=== PATIENT | female | born 1960 | race Caucasian/White ===

== ENCOUNTER → 2016-11-17 | Outpatient (REF) | payer MEDICAID ==
[2016-11-17 11:37] LABS: MEAN CORPUSCULAR HEMOGLOBIN 30.5 pg (27.0-33.0); MEAN CORPUSCULAR HGB CONC 33.2 g/dl (32.0-36.5); MEAN CORPUSCULAR VOLUME 91.6 fl (80.0-96.0); RED CELL DISTRIBUTION WIDTH 14.4 % (11.5-14.5); WHITE BLOOD COUNT 9.5 K/mm3 (4.0-10.0)
[2016-11-17 11:48] LABS: ALBUMIN 3.7 GM/DL (3.2-5.2); ALBUMIN/GLOBULIN RATIO 1.19 (1.00-1.93); BILIRUBIN,TOTAL 0.3 MG/DL (0.2-1.0); CALCIUM LEVEL 9.4 MG/DL (8.5-10.1); CREATININE FOR GFR 1.21 MG/DL (0.55-1.02); GLOMERULAR FILTRATION RATE 49.2 (>51); TOTAL PROTEIN 6.8 GM/DL (6.4-8.2)
== END ==
LOC: M SFHCPLAZ 08:00
PROVIDERS: ATTEND Nurse Practitioner Adult Health
DX: I10 Essential (primary) hypertension (principal); R53.83 Other fatigue; E55.9 Vitamin D deficiency, unspecified

== ENCOUNTER → 2017-01-29 | Outpatient (CLI) | payer OTHER ==
--- NOTE | 2017-01-29 12:35 | REP ---
Clinical: Lower back pain . Technique: AP, lateral, bilateral oblique, and coned-down views. Findings: Alignment and lordosis is maintained. The vertebral bodies including transverse process and spinous processes are intact and normal for age. There is no evidence for acute fracture / compression injury or subluxation. No evidence for spondylolysis or spondylolisthesis. Right-sided bridging osteophytes at the L3-4 level. Impression: Age-related degenerative changes. Signed by Devon Mayo MD 01/29/2017 12:27 P
== END ==
LOC: M SMT 11:51
PROVIDERS: ATTEND Nurse Practitioner Adult Health
DX: M54.5 Low back pain (principal); M51.36 Other intervertebral disc degeneration, lumbar region

== ENCOUNTER → 2017-05-13 | Outpatient (REF) | payer OTHER ==
[2017-05-13 11:28] LABS: MEAN CORPUSCULAR HEMOGLOBIN 30.4 pg (27.0-33.0); MEAN CORPUSCULAR HGB CONC 32.5 g/dl (32.0-36.5); MEAN CORPUSCULAR VOLUME 93.6 fl (80.0-96.0); RED CELL DISTRIBUTION WIDTH 13.3 % (11.5-14.5); WHITE BLOOD COUNT 8.7 K/mm3 (4.0-10.0)
[2017-05-13 12:14] LABS: ALBUMIN 3.7 GM/DL (3.2-5.2); ALBUMIN/GLOBULIN RATIO 1.06 (1.00-1.93); ALKALINE PHOSPHATASE 136 U/L (45-117); ALT/SGPT 21 U/L (12-78); ANION GAP 7 MEQ/L (8-16); AST/SGOT 17 U/L (15-37); BILIRUBIN,TOTAL 0.3 MG/DL (0.2-1.0); BLOOD UREA NITROGEN 10 MG/DL (7-18); CALCIUM LEVEL 9.3 MG/DL (8.5-10.1); CARBON DIOXIDE LEVEL 27 MEQ/L (21-32); CHLORIDE LEVEL 104 MEQ/L (98-107); CHOLESTEROL LEVEL 291 MG/DL (<200); CREATININE FOR GFR 1.25 MG/DL (0.55-1.02); GLOMERULAR FILTRATION RATE 47.2 (>51); GLUCOSE, FASTING 84 MG/DL (70-105); POTASSIUM SERUM 4.2 MEQ/L (3.5-5.1); SODIUM LEVEL 138 MEQ/L (136-145); TOTAL PROTEIN 7.2 GM/DL (6.4-8.2); TRIGLYCERIDES LEVEL 206 MG/DL (<150)
== END ==
LOC: M SFHCPLAZ 08:24
PROVIDERS: ATTEND Nurse Practitioner Adult Health
DX: Z00.00 Encounter for general adult medical examination without abnormal findings (principal); Z82.61 Family history of arthritis; R53.83 Other fatigue; E55.9 Vitamin D deficiency, unspecified

== ENCOUNTER → 2017-09-22 | Outpatient (CLI) | payer OTHER ==
--- NOTE | 2017-09-22 13:33 | REP ---
UNILATERAL MAMMOGRAM LEFT BREAST: Unilateral mammogram left breast is performed in this patient status post right breast cancer and mastectomy. There is also family history of breast cancer in sister and maternal aunt. Left breast shows mild fibroglandular tissue. No mass or clustered microcalcifications are seen. IMPRESSION: BI-RADS/ACR category 1 mammogram. Negative. Routine annual screening mammography (for women over age 40). ACR 1, negative mammogram left breast in this patient status post right mastectomy. Suggest followup mammogram in 1 year. This mammogram was interpreted with the aid of an FDA-approved computer-aided detection system. The patient states that she/he has not had a clinical breast exam in over a year. The patient letter being requested is M1.
== END ==
LOC: M WHC 10:45
PROVIDERS: ATTEND Nurse Practitioner Adult Health
DX: Z12.31 Encounter for screening mammogram for malignant neoplasm of breast (principal); Z85.3 Personal history of malignant neoplasm of breast; Z90.11 Acquired absence of right breast and nipple

== ENCOUNTER → 2017-10-29 | Outpatient (REF) | payer OTHER | LOC: M SFHCWAGY 15:47 | DX: Z12.4 Encounter for screening for malignant neoplasm of cervix (principal) ==

== ENCOUNTER → 2018-11-04 | Outpatient (CLI) | payer MEDICARE, MEDICAID ==
--- NOTE | 2018-11-04 14:59 | REPMRS ---
Patient History The patient states she had a clinical breast exam in 11/20 Patient is postmenopausal, had previous chemotherapy at age 43, and has history of cancer in the right breast at age 42. Family history of breast cancer under age 50 in sister, breast cancer at age 50 or over in maternal aunt, prostate cancer at age 50 or over in father. Reconstruction of the right breast, 2004. Mastectomy of the right breast, 2003. Took tamoxifen for 3 years. Digital Woman Screen Mammo: November 04, 2018 - Exam #: [id number] Bilateral CC and MLO view(s) were taken. Technologist: Anuja Naranjo, Technologist Prior study comparison: September 22, 2017, digital woman screen mammo performed at [facility]. July 22, 2016, digital woman screen mammo performed at [facility]. September 12, 2014, digital woman screen mammo performed at [facility]. FINDINGS: There are scattered fibroglandular densities. There has been no change in the appearance of the left breast parenchyma in the interval since the prior examination. No mass, architectural distortion, or microcalcific cluster has developed. No suspicious finding. 3-D tomosynthesis shows no additional findings. Assessment: BI-RADS/ACR category 2 mammogram. Benign finding(s). Recommendation Routine screening mammogram of the left breast in 1 year. This mammogram was interpreted with the aid of an FDA-approved computer-aided dectection system. Electronically Signed By: Fei Chu MD 11/04/18 1187
== END ==
LOC: M WHC 13:58
PROVIDERS: ATTEND Nurse Practitioner Women's Health
DX: Z01.419 Encounter for gynecological examination (general) (routine) without abnormal findings (principal); Z12.31 Encounter for screening mammogram for malignant neoplasm of breast; Z78.0 Asymptomatic menopausal state; Z92.21 Personal history of antineoplastic chemotherapy; Z85.3 Personal history of malignant neoplasm of breast; Z80.3 Family history of malignant neoplasm of breast; Z92.29 Personal history of other drug therapy; Z90.11 Acquired absence of right breast and nipple; Z98.890 Other specified postprocedural states
CPT/HCPCS: 77063; 77067; G0101

== ENCOUNTER 2018-12-21 11:27 | Inpatient (IN) | payer MEDICARE, MEDICAID ==
[~2018-12-21] VITALS: Ht 162.6 cm; Wt 78.9 kg
[2018-12-21] MEDS: **UNRESOLVED NON-FORMULARY MED ORDER XX SCH (09:00)
[2018-12-21] MEDS ORDERED: METO1TAB32 PO (12:07)
[2018-12-21] MEDS ORDERED: ACET-683 PO (12:07)
[2018-12-21] MEDS ORDERED: BUSP15TA47 PO (12:07)
[2018-12-21] MEDS ORDERED: FOLI1TAB11 PO (12:07)
[2018-12-21] MEDS ORDERED: DESV50TA3 PO (12:07)
[2018-12-21] MEDS ORDERED: HYDR50CA2 PO (12:07)
[2018-12-21] MEDS ORDERED: VITA-176 PO (12:07)
[2018-12-21] MEDS ORDERED: FLUT1INH3 PO (12:07)
[2018-12-21] MEDS ORDERED: OMEP-221 PO (12:07)
[2018-12-21] MEDS ORDERED: BUPR300T34 PO (12:07)
[2018-12-21] MEDS ORDERED: VENTAER INH (12:07)
[2018-12-21 12:27] LABS: HEMATOCRIT 43.5 % (36.0-47.0); HEMOGLOBIN 14.1 g/dl (12.0-15.5); MEAN CORPUSCULAR HEMOGLOBIN 29.5 pg (27.0-33.0); MEAN CORPUSCULAR HGB CONC 32.4 g/dl (32.0-36.5); PLATELET COUNT, AUTOMATED 308 10^3/uL (150-450); RED BLOOD COUNT 4.78 10^6/uL (4.00-5.40); WHITE BLOOD COUNT 8.5 10^3/uL (4.0-10.0)
[2018-12-21 13:06] LABS: ACETAMINOPHEN LEVEL < 2.0 UG/ML (10.0-30.0); ALBUMIN 3.5 GM/DL (3.2-5.2); ALT/SGPT 43 U/L (12-78); BILIRUBIN,DIRECT < 0.1 MG/DL (0.0-0.2); BILIRUBIN,TOTAL 0.3 MG/DL (0.2-1.0); BLOOD UREA NITROGEN 12 MG/DL (7-18); CALCIUM LEVEL 8.9 MG/DL (8.5-10.1); CARBON DIOXIDE LEVEL 27 MEQ/L (21-32); CHLORIDE LEVEL 103 MEQ/L (98-107); CREATININE FOR GFR 1.15 MG/DL (0.55-1.30); ETHYL ALCOHOL (ETHANOL) 0.003 % (0.000-0.010); GLOMERULAR FILTRATION RATE 51.6 (>51); GLUCOSE, FASTING 100 MG/DL (70-100); POTASSIUM SERUM 4.2 MEQ/L (3.5-5.1); SALICYLATE LEVEL < 1.7 MG/DL (5.0-30.0); SODIUM LEVEL 139 MEQ/L (136-145); TOTAL PROTEIN 7.4 GM/DL (6.4-8.2)
[2018-12-21] MEDS ORDERED: LORazepam 1 MG TAB PO ONE (14:30)
[2018-12-21 15:55] LABS: AMPHETAMINES LEVEL URINE NEGATIVE (NEGATIVE); BARBITURATES URINE NEGATIVE (NEGATIVE); BENZODIAZEPINES URINE NEGATIVE (NEGATIVE); CANNABINOIDS URINE NEGATIVE (NEGATIVE); COCAINE METABOLITE URINE NEGATIVE (NEGATIVE); METHADONE URINE NEGATIVE (NEGATIVE); OPIATES URINE NEGATIVE (NEGATIVE); PHENCYCLIDINE URINE NEGATIVE (NEGATIVE)
[2018-12-21] MEDS ORDERED: MAALOX 30 ML SUSP *UDC PO PRN (16:15)
[2018-12-21] MEDS ORDERED: CALTTAB6 PO (16:51)
[2018-12-21] MEDS ORDERED: DESV25TA PO (16:51)
[2018-12-21 18:05] VITALS: BP 176/91
[2018-12-21] MEDS ORDERED: ALBUTEROL 90 MCG/ACT 8GM HFA INHALER INH PRN (20:00)
[2018-12-21] MEDS ORDERED: DESVENLAFAXINE ER 50 MG TABLET (PRISTIQ) PO SCH (21:00)
[2018-12-21] MEDS: VITAMIN D 1,000 INTERNATIONAL UNITS TABLET PO SCH (22:14)
[2018-12-21] MEDS: hydrOXYzine 50 MG TAB PO SCH (22:15)
[2018-12-21] MEDS: METOPROLOL SUCC *XL* 25MG TAB (TopROL *XL*) PO SCH (22:16)
[2018-12-21] MEDS: busPIRone 5 MG TAB PO SCH (22:17)
[2018-12-22 06:52] VITALS: BP 126/59
[2018-12-22] MEDS: OMEPRAZOLE 20 MG CAP PO SCH (08:51)
[2018-12-22] MEDS: busPIRone 5 MG TAB PO SCH ×3 (08:51→20:18)
[2018-12-22] MEDS: FOLIC ACID 1 MG TAB PO SCH (08:51)
[2018-12-22] MEDS ORDERED: DESVENLAFAXINE ER 50 MG TABLET (PRISTIQ) PO SCH (09:00)
[2018-12-22] MEDS ORDERED: buPROPion **XL** TABLET 150MG (WELLBUTRIN XL) PO SCH (09:00)
[2018-12-22] MEDS: **UNRESOLVED NON-FORMULARY MED ORDER XX SCH (09:00)
--- NOTE | 2018-12-22 11:22 | HPEPDOC ---
[facility] Medical History & Physical Date of Admission Dec 21, 2018 History and Physical PCP: Tamra Gage MD ATTENDING: Dr. Alva Ortiz HPI: 58 yo F admitted to [facility] for unspecified depressive disorder, being medically examined today. No acute medical complaints today. Denies any fevers, chills, weakness, fatigue, MCBRIDE, CP, SOB, cough, palpitations, abdominal pain, N/V/D or changes in bowel or bladder habits. PMH Hypertension Dyslipidemia asthma History of Rt breast cancer status post mastectomy and chemotherapy Depression Anxiety Chronic pain/chronic back pain History of hearing loss status post chemotherapy, wears hearing aids bilaterally GERD CKD3. Baseline 1.1-1.2 SURGICAL HISTORY RIGHT MASTECTOMY WITH RECONSTRUCTION 2003 BTL 1983 COLONOSCOPY: IH; DR. ALEXANDRA BIOPSY ENDOMETRIAL LINING WITH D&C FOR PMB; RESOLVED AFTER D&C 07/2013 SOCHX: Resides in: [facility] [place] Marital Status: Kids: 2 Employment: Unemployed Tobacco use: Denies ETOH: Denies Illicit Drugs: Denies IV Drug Use: Denies Tattoos done unprofessionally: Denies FAMHX: Mother: , CHF Father: Alive, history of hypertension, prostate cancer Siblings: One sister Alive, h/o of breast cancer Children: Alive, well Unexpected deaths due to medical reasons: None. ROS: As noted in HPI, otherwise 11pt ROS of systems reviewed and unremarkable. PE: GEN: 58yoF, appears stated age. Well-nourished, well developed. No acute distress. Alert and oriented x 3. Pleasant, interactive. HEENT: Normocephalic, atraumatic. Pupils are equal, round, and reactive to light. Extraocular movements are intact. No nystagmus appreciated. Sclera are nonicteric. Conjunctiva without injection. Nose midline. Nasal turbinates without bogginess. EACs both patent BL. TMs both visualized and hardy with good cone of light, no bulging or erythema. No facial asymmetry. Moist mucous membranes. Patient is edentulous, wearing upper and lower dentures. Pharynx pink and moist, no cobblestoning. Neck supple, trachea midline. No lymphadenopathy or thyromegaly appreciated. CHEST: Regular rate and rhythm, +S1, +S2 LUNGS: Clear to auscultation bilaterally. No wheezes, rales, or rhonchi. Breathing appears symmetric and easy. Patient is speaking in full sentences. No accessory muscle use. ABD: Round, soft, non-tender, non-distended. +Bowel sounds throughout. No rebound or guarding. No costovertebral angle tenderness. EXT: Pulses 2+ bilaterally dorsalis pedis and radial. No lower extremity edema appreciated. SKIN: [place], dry, warm. Capillary refill <2sec. No rashes. NEURO: Alert and oriented x 3. Cranial nerves III-XII are intact. No focal def icits appreciated. EKG: pending A&P: 58 yo F admitted to [facility] for unspecified depressive disorder 1. Psych. Plan per Psychiatry. Obtain baseline EKG to assure the safety of psychiatric medications as they can prolong the QT interval. 2. GERD. Continue Prilosec 40 mg by mouth daily. 3. Asthma. Continue with Advair 2 puffs inhaled twice a day. Continue albuterol HFA 2 puffs every 4 hours as needed. 4. Follow up with PCP on discharge. 5. Hypertension. Continue Toprol-XL 25 mg by mouth daily. 6. CKD3. Appears to be at baseline. Avoid nephrotoxic medications. 7. Staff member Niki PACE present throughout exam. Vital Signs Vital Signs Date Time Temp Pulse Resp B/P (MAP) Pulse Ox O2 Delivery O2 Flow Rate FiO2 12/22/18 08:55 Room Air 12/22/18 06:52 98.6 83 14 126/59 (81) 12/21/18 17:44 100 Laboratory Data Labs 24H Laboratory Tests 2 12/21/18 12:20: Nucleated Red Blood Cells % (auto) 0.0, Anion Gap 9, Glomerular Filtration Rate 51.6, Calcium Level 8.9, Aspartate Amino Transf (AST/SGOT) 27, Alanine Aminotransferase (ALT/SGPT) 43, Alkaline Phosphatase 240H, Total Bilirubin 0.3, Direct Bilirubin < 0.1, Total Protein 7.4, Albumin 3.5, Albumin/Globulin Ratio 0.90L, Thyroid Stimulating Hormone (TSH) 1.360, Salicylates Level < 1.7L, Acetaminophen Level < 2.0L, Ethyl Alcohol Level 0.003 12/21/18 15:26: Urine Amphetamines Screen NEGATIVE, Urine Benzodiazepines Screen NEGATIVE, Urine Opiates Screen NEGATIVE, Urine Methadone Screen NEGATIVE, Urine Barbiturates Screen NEGATIVE, Urine Phencyclidine Screen NEGATIVE, Urine Cocaine Metabolite Screen NEGATIVE, Urine Cannabinoids Screen NEGATIVE CBC/BMP Laboratory Tests 12/21/18 12:20 Red Blood Count 4.78, Mean Corpuscular Volume 91.0, Mean Corpuscular Hemoglobin 29.5, Mean Corpuscular Hemoglobin Concent 32.4, Red Cell Distribution Width 13.1 Home Medications Scheduled (Fluticasone Propionate/SA 232-14 Mcg/Act) 1 Inh Inh, 1 PUFF PO BID (Desvenlafaxine ER) 50 Mg Tab, 50 MG PO QHS TAKES WITH 25MG TABLET FOR TOTAL OF 75MG (Caltrate 600+D Plus [employer] 600-800 mg-Unit) 1 Tab Tab, 1 TAB PO QPM TAKES AT 1700 Acetaminophen (Acetaminophen Extra Stren) 500 Mg Tab, 1,000 MG PO Q6H Bupropion HCl (Bupropion HCl Xl) 300 Mg Tab, 300 MG PO DAILY Buspirone HCl (Buspirone HCl) 15 Mg Tab, 15 MG PO TID Cholecalciferol (Vitamin D3) 1,000 Unit Chw, 1,000 UNITS PO QHS Desvenlafaxine Succinate Monoh (Desvenlafaxine ER) 25 Mg Tab, 25 MG PO DAILY TAKES WITH 50 MG DAILY FOR TOTAL OF 75MG Folic Acid (Folic Acid) 1 Mg Tab, 1 MG PO DAILY Hydroxyzine Pamoate (Hydroxyzine Pamoate) 50 Mg Cap, 50 MG PO QHS Metoprolol Succinate (Metoprolol Succinate ER) 25 Mg Tab, 25 MG PO QPM TAKES AT 1700 Omeprazole (Omeprazole Dr) 40 Mg Cap, 40 MG PO DAILY Scheduled PRN Albuterol Sulfate (Ventolin Hfa) 108 Mcg/Act Aer, 2 PUFF INH Q4H PRN for SHORTNESS OF BREATH Allergies Coded Allergies: Clarithromycin (Verified Allergy, Unknown, 11/27/14) Erythromycin (Verified Allergy, Unknown, 11/27/14) Nifedipine (Verified Allergy, Unknown, 11/27/14) TAPE (Verified Allergy, Unknown, 11/27/14) Nahed Sandoval Dec 22, 2018 11:22
[2018-12-22] MEDS: ADVAIR HFA 115/21MCG INHALER INH SCH ×2 (11:29→20:18)
[2018-12-22] MEDS: METOPROLOL SUCC *XL* 25MG TAB (TopROL *XL*) PO SCH (17:15)
[2018-12-22 18:00] VITALS: BP 124/88
[2018-12-22] MEDS: hydrOXYzine 50 MG TAB PO SCH (20:18)
[2018-12-22] MEDS: VITAMIN D 1,000 INTERNATIONAL UNITS TABLET PO SCH (20:18)
[2018-12-22] MEDS: ACETAMINOPHEN TAB 650MG DOSE (2X325MG) PO PRN (20:20)
--- NOTE | 2018-12-22 22:36 | ECGEPIP ---
Stationary ECG Study [facility] Test Date: 2018-12-22 Pat Name: CARSON BEST Department: Room: [place] [address] Gender: F Train Operator: KARINE : 1960 Requested By: Nahed Sandoval Order Number: [id number] Reading MD: Shiva Walters Measurements Intervals [place] Rate: 87 P: 40 AL: 156 QRS: 27 QRSD: 89 T: 55 QT: 362 QTc: 436 Interpretive Statements SINUS RHYTHM MINIMAL VOLTAGE CRITERIA FOR LVH, CONSIDER NORMAL VARIANT NONSPECIFIC ST-T ABNORMALITY No prior ECG available for comparison at the time of interpretation. Electronically Signed On 12-22-2018 22:36:10 EST by Shiva Walters
[2018-12-23 06:38] VITALS: BP 120/87
[2018-12-23] MEDS: FOLIC ACID 1 MG TAB PO SCH (08:07)
[2018-12-23] MEDS: ADVAIR HFA 115/21MCG INHALER INH SCH ×2 (08:07→20:21)
[2018-12-23] MEDS: VENLAFAXINE **XR** 75MG CAPSULE PO SCH (08:07)
[2018-12-23] MEDS: OMEPRAZOLE 20 MG CAP PO SCH (08:07)
[2018-12-23] MEDS: busPIRone 5 MG TAB PO SCH ×3 (08:08→20:21)
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
--- NOTE | 2018-12-23 09:40 | MHIPNPDOC ---
[facility] Progress Note Progress Note DATE OF SERVICE: 12/23/18 HISTORY: Patient is a 58 -year-old , female, with a history of depression and anxiety who was sent by Kentrell GARCIA for endorsing SI with plan to jump off bridge ("I'm so stressed I might as well jump off the bridge") while being seen by psychiatrist. Pt in the ED was depressed, anxious, pacing, crying profusely,hyperventilating stating "I just get like the some times." She was guarded and reluctant to answer questions. Pt stated in the ED that her biggest stressor was that she was bothered by her upstairs neighbor's children b/c one child "stomped on the floor at all hours" and this made her anxious. She stated in the ED she was suicidal and "just want to go home." VITAL SIGNS: See below. NEW TEST RESULTS: See below. CURRENT MEDICATIONS: See below. MENTAL STATUS EXAMINATION: General Appearance: unkempt, disheveled, appears stated age, hospital scubs/clothing Build: average Demeanor: average Eye Contact: average Activity: slow, anxious Behavior: cooperative Speech: clear, spontaneous, normal volume, reg/rate,rhythm,volume Mood: depressed, anxious, flat Mood "tired" Affect: constricted, flat, congruent, anxious Thought Process: logical/linear, depressed, intact Thought Content (Delusions): none reported, denies SI, HI, AVH Thought Content (Other): none reported, appropriate Thought Content (Aggressive): none reported Perception (Hallucinations): none reported Perception (Other): none reported Cognition (Impairment of): none reported Cognition(Intelligence Est.): average Oriented: Awake, Alert, Oriented times three Insight: fair Judgment: Fair Psychosis: Denies DIAGNOSES: 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 States she's tolerating her medication and waiting for it to become beneficial. Took abilify today in place of rexulti not yet being on formulary and tolerated but endorsing fatigue. Will d/c abilify and start rexulti as now available on formulary and can be more activating. States she slept better last night with the use of trazodone. Is eating well. Continues to endorses hypersomnia, low energy, depression, poor concentration, lack of motivation. Denies SI/HI, hallucinations, delusions. She is attending groups and finding them helpful. Feels safe here. MANAGEMENT PLAN: d/c abilify and start rexulti Rexulti 1mg daily Effexor xr 150mg daily trazodone 50mg qhs prn insomnia TIME SPENT: 30 minutes. Vital Signs Vital Signs Date Time Temp Pulse Resp B/P (MAP) Pulse Ox O2 Delivery O2 Flow Rate FiO2 12/23/18 06:38 98.4 53 16 120/87 (98) 12/22/18 08:55 Room Air 12/21/18 17:44 100 Current Medications Current Medications Acetaminophen (Tylenol Tab) 650 mg Q6HP PRN PO HEADACHE or DISCOMFORT Last administered on 12/22/18at 20:20; Start 12/21/18 at 16:15 Al Hydrox/Mg Hydrox/Simethicone (Mylanta) 30 ml Q4HP PRN PO HE ARTBURN/INDIGESTION; Start 12/21/18 at 16:15 Albuterol Sulfate (Proventil, Ventolin Hfa) 2 puff Q4HP PRN INH SHORTNESS OF BREATH; Start 12/21/18 at 20:00 Aripiprazole (AbiLIFY) 5 mg DAILY PO Last administered on 12/23/18at 08:07; Start 12/23/18 at 09:00 Bupropion HCl (Wellbutrin Xl) 300 mg DAILY PO Last administered on 12/22/18at 08:51; Start 12/22/18 at 09:00; Stop 12/22/18 at 14:23; Status DC Buspirone HCl (Buspar) 15 mg TID PO Last administered on 12/23/18at 08:08; Start 12/21/18 at 21:00 Desvenlafaxine Succinate (Pristiq) 25 mg DAILY PO ; Start 12/22/18 at 09:00; Status UNV Desvenlafaxine Succinate (Pristiq) 50 mg QHS PO Last administered on 12/21/18at 22:14; Start 12/21/18 at 21:00; Stop 12/22/18 at 14:23; Status DC Folic Acid (Folic Acid) 1 mg DAILY PO Last administered on 12/23/18at 08:07; Start 12/22/18 at 09:00 Home Med (Med Rec Complete!) ASDIRECTED XX ; Start 12/21/18 at 17:00; Stop 12/21/18 at 17:00; Status DC Hydroxyzine HCl (Atarax) 50 mg QHS PO Last administered on 12/22/18at 20:18; Start 12/21/18 at 21:00 Magnesium Hydroxide (Milk Of Magnesia) 30 ml DAILYPRN PRN PO CONSTIPATION; Start 12/21/18 at 16:15 Metoprolol Succinate (TopROL XL) 25 mg QPM@1700 PO Last administered on 12/22/18at 17:15; Start 12/21/18 at 17:00 Miscellaneous (Unresolved Non-Formulary Med Order) SEE LABEL COMMENTS DAILY XX ; Start 12/21/18 at 09:00; Stop 12/22/18 at 14:28; Status DC Omeprazole (PriLOSEC) 40 mg DAILY PO Last administered on 12/23/18at 08:07; Start 12/22/18 at 09:00 Salmeterol Xinafoate/ Fluticasone (Advair Hfa 115/ 21) 2 puff RBID INH Last administered on 12/23/18at 08:07; Start 12/22/18 at 08:00 Trazodone HCl (Desyrel) 50 mg QHSP PRN PO INSOMNIA; Start 12/21/18 at 16:15 Venlafaxine HCl (Effexor Xr) 150 mg DAILY PO Last administered on 12/23/18at 08:07; Start 12/23/18 at 09:00 Vitamin D (Vitamin D) 1,000 units QHS PO Last administered on 12/22/18at 20:18; Start 12/21/18 at 21:00 Allergies Coded Allergies: Clarithromycin (Verified Allergy, Unknown, 11/27/14) Erythromycin (Verified Allergy, Unknown, 11/27/14) Nifedipine (Verified Allergy, Unknown, 11/27/14) TAPE (Verified Allergy, Unknown, 11/27/14) PATI ARROYO DO Dec 23, 2018 9:34 am
[2018-12-23] MEDS ORDERED: BREXPIPRAZOLE 0.5MG TABLET (REXULTI) PO ONE (10:30)
[2018-12-23] MEDS: METOPROLOL SUCC *XL* 25MG TAB (TopROL *XL*) PO SCH (17:06)
[2018-12-23 18:00] VITALS: BP 131/82
[2018-12-23] MEDS: hydrOXYzine 50 MG TAB PO SCH (20:21)
[2018-12-23] MEDS: VITAMIN D 1,000 INTERNATIONAL UNITS TABLET PO SCH (20:21)
[2018-12-23] MEDS: traZODone 50 MG TAB PO PRN (20:21)
[2018-12-23] MEDS: ACETAMINOPHEN TAB 650MG DOSE (2X325MG) PO PRN (20:22)
[2018-12-24 06:42] VITALS: BP 127/83
[2018-12-24] MEDS: VENLAFAXINE **XR** 75MG CAPSULE PO SCH (08:18)
[2018-12-24] MEDS: ADVAIR HFA 115/21MCG INHALER INH SCH ×2 (08:18→20:21)
[2018-12-24] MEDS: busPIRone 5 MG TAB PO SCH ×3 (08:19→20:22)
[2018-12-24] MEDS: BREXPIPRAZOLE 0.5MG TABLET (REXULTI) PO SCH (08:19)
[2018-12-24] MEDS: FOLIC ACID 1 MG TAB PO SCH (08:19)
[2018-12-24] MEDS: OMEPRAZOLE 20 MG CAP PO SCH (08:19)
--- NOTE | 2018-12-24 10:34 | MHIPNPDOC ---
[facility] Progress Note Progress Note DATE OF SERVICE: 12/24/18 HISTORY: Patient is a 58 -year-old , female, with a history of depression and anxiety who was sent by Kentrell GARCIA for endorsing SI with plan to jump off bridge ("I'm so stressed I might as well jump off the bridge") while being seen by psychiatrist. Pt in the ED was depressed, anxious, pacing, crying profusely,hyperventilating stating "I just get like the some times." She was guarded and reluctant to answer questions. Pt stated in the ED that her biggest stressor was that she was bothered by her upstairs neighbor's children b/c one child "stomped on the floor at all hours" and this made her anxious. She stated in the ED she was suicidal and "just want to go home." VITAL SIGNS: See below. NEW TEST RESULTS: See below. CURRENT MEDICATIONS: See below. MENTAL STATUS EXAMINATION: General Appearance: unkempt, disheveled, appears stated age, hospital scrubs/clothing Build: average Demeanor: average, pleasant Eye Contact: average Activity: more average and less anxious Behavior: cooperative Speech: clear, spontaneous, normal volume, reg/rate,rhythm,volume Mood: less depressed and anxious, more normal mood variability as smiles and laughs appropriately base on interview discussion Mood "better" Affect: less constricted, no longer flat, congruent, less anxious Thought Process: logical/linear, depressed, intact Thought Content (Delusions): none reported, denies SI, HI, AVH Thought Content (Other): none reported, appropriate Thought Content (Aggressive): none reported Perception (Hallucinations): none reported Perception (Other): none reported Cognition (Impairment of): none reported Cognition(Intelligence Est.): average Oriented: Awake, Alert, Oriented times three Insight: fair Judgment: Fair Psychosis: Denies DIAGNOSES: Major depressive d/o w/o psychosis anxiety unspecified ASSESSMENT:Pt seen and states she's feeling slightly less depressed, more motivated to do things during the day like attend group and socialize with peers, and less anxious. Her mood appears to be less constricted and anxious. Did smile and laugh today appropriately with interview discussion. States she's tolerating her medication and feels it's beneficial. States she sleeping better at night and is finding her medication helpful. Is eating well. Endorses improving hypersomnia, low energy, depression, poor concentration, lack of motivation. Denies SI/HI, hallucinations, delusions. She is attending groups and finding them helpful. Feels safe here. MANAGEMENT PLAN: continue current plan Rexulti 1mg daily Effexor xr 150mg daily trazodone 50mg qhs prn insomnia TIME SPENT: 30 minutes. Vital Signs Vital Signs Date Time Temp Pulse Resp B/P (MAP) Pulse Ox O2 Delivery O2 Flow Rate FiO2 12/24/18 06:42 97.7 67 18 127/83 (98) 12/23/18 10:08 Room Air 12/21/18 17:44 100 Current Medications Current Medications Acetaminophen (Tylenol Tab) 650 mg Q6HP PRN PO HEADACHE or DISCOMFORT Last administered on 12/23/18at 20:22; Start 12/21/18 at 16:15 Al Hydrox/Mg Hydrox/Simethicone (Mylanta) 30 ml Q4HP PRN PO HEARTBURN/INDIGESTION; Start 12/21/18 at 16:15 Albuterol Sulfate (Proventil, Ventolin Hfa) 2 puff Q4HP PRN INH SHORTNESS OF BREATH; Start 12/21/18 at 20:00 Aripiprazole (AbiLIFY) 5 mg DAILY PO Last administered on 12/23/18at 08:07; Start 12/23/18 at 09:00; Stop 12/23/18 at 09:31; Status DC Brexpiprazole (Rexulti) 1 mg DAILY PO Last administered on 12/24/18at 08:19; Start 12/24/18 at 09:00 Bupropion HCl (Wellbutrin Xl) 300 mg DAILY PO Last administered on 12/22/18at 08:51; Start 12/22/18 at 09:00; Stop 12/22/18 at 14:23; Status DC Buspirone HCl (Buspar) 15 mg TID PO Last administered on 12/24/18at 08:19; Start 12/21/18 at 21:00 Desvenlafaxine Succinate (Pristiq) 25 mg DAILY PO ; Start 12/22/18 at 09:00; Status UNV Desvenlafaxine Succinate (Pristiq) 50 mg QHS PO Last administered on 12/21/18at 22:14; Start 12/21/18 at 21:00; Stop 12/22/18 at 14:23; Status DC Folic Acid (Folic Acid) 1 mg DAILY PO Last administered on 12/24/18at 08:19; Start 12/22/18 at 09:00 Home Med (Med Rec Complete!) ASDIRECTED XX ; Start 12/21/18 at 17:00; Stop 12/21/18 at 17:00; Status DC Hydroxyzine HCl (Atarax) 50 mg QHS PO Last administered on 12/23/18at 20:21; Start 12/21/18 at 21:00 Magnesium Hydroxide (Milk Of Magnesia) 30 ml DAILYPRN PRN PO CONSTIPATION; Start 12/21/18 at 16:15 Metoprolol Succinate (TopROL XL) 25 mg QPM@1700 PO Last administered on at 17:06; Start 12/21/18 at 17:00 Miscellaneous (Unresolved Non-Formulary Med Order) SEE LABEL COMMENTS DAILY XX ; Start 12/21/18 at 09:00; Stop 12/22/18 at 14:28; Status DC Omeprazole (PriLOSEC) 40 mg DAILY PO Last administered on 12/24/18at 08:19; Start 12/22/18 at 09:00 Salmeterol Xinafoate/ Fluticasone (Advair Hfa 115/ 21) 2 puff RBID INH Last administered on 12/24/18at 08:18; Start 12/22/18 at 08:00 Trazodone HCl (Desyrel) 50 mg QHSP PRN PO INSOMNIA Last administered on 12/23/18at 20:21; Start 12/21/18 at 16:15 Venlafaxine HCl (Effexor Xr) 150 mg DAILY PO Last administered on 12/24/18at 08:18; Start 12/23/18 at 09:00 Vitamin D (Vitamin D) 1,000 units QHS PO Last administered on 12/23/18at 20:21; Start 12/21/18 at 21:00 Allergies Coded Allergies: Clarithromycin (Verified Allergy, Unknown, 11/27/14) Erythromycin (Verified Allergy, Unknown, 11/27/14) Nifedipine (Verified Allergy, Unknown, 11/27/14) TAPE (Verified Allergy, Unknown, 11/27/14) PTAI ARROYO DO Dec 24, 2018 10:33 am
[2018-12-24] MEDS: METOPROLOL SUCC *XL* 25MG TAB (TopROL *XL*) PO SCH (16:49)
[2018-12-24 18:00] VITALS: BP_SYST 116; BP_SYST 140; BP_DIAS 73; BP_DIAS 87
[2018-12-24] MEDS: hydrOXYzine 50 MG TAB PO SCH (20:21)
[2018-12-24] MEDS: VITAMIN D 1,000 INTERNATIONAL UNITS TABLET PO SCH (20:21)
[2018-12-24] MEDS: traZODone 50 MG TAB PO PRN (20:22)
[2018-12-24] MEDS: ACETAMINOPHEN TAB 650MG DOSE (2X325MG) PO PRN (20:23)
[2018-12-25 06:41] VITALS: BP 126/75
[2018-12-25] MEDS: FOLIC ACID 1 MG TAB PO SCH (08:09)
[2018-12-25] MEDS: OMEPRAZOLE 20 MG CAP PO SCH (08:09)
[2018-12-25] MEDS: ADVAIR HFA 115/21MCG INHALER INH SCH ×2 (08:09→20:03)
[2018-12-25] MEDS: BREXPIPRAZOLE 0.5MG TABLET (REXULTI) PO SCH (08:09)
[2018-12-25] MEDS: busPIRone 5 MG TAB PO SCH ×3 (08:09→20:02)
[2018-12-25] MEDS: VENLAFAXINE **XR** 75MG CAPSULE PO SCH (08:09)
[2018-12-25] MEDS: MOM 30ML SUSPENSION UDC PO PRN (14:15)
[2018-12-25] MEDS: METOPROLOL SUCC *XL* 25MG TAB (TopROL *XL*) PO SCH (16:43)
[2018-12-25 18:46] VITALS: BP 120/71
[2018-12-25] MEDS: VITAMIN D 1,000 INTERNATIONAL UNITS TABLET PO SCH (20:02)
[2018-12-25] MEDS: hydrOXYzine 50 MG TAB PO SCH (20:02)
[2018-12-25] MEDS: traZODone 50 MG TAB PO PRN (20:02)
[2018-12-25] MEDS: ACETAMINOPHEN TAB 650MG DOSE (2X325MG) PO PRN (20:03)
[2018-12-26 06:09] VITALS: BP 113/67
[2018-12-26] MEDS: ADVAIR HFA 115/21MCG INHALER INH SCH ×2 (08:32→20:29)
[2018-12-26] MEDS: VENLAFAXINE **XR** 75MG CAPSULE PO SCH (08:32)
[2018-12-26] MEDS: BREXPIPRAZOLE 0.5MG TABLET (REXULTI) PO SCH (08:32)
[2018-12-26] MEDS: busPIRone 5 MG TAB PO SCH ×3 (08:32→20:29)
[2018-12-26] MEDS: OMEPRAZOLE 20 MG CAP PO SCH (08:32)
[2018-12-26] MEDS: FOLIC ACID 1 MG TAB PO SCH (08:32)
[2018-12-26] MEDS: METOPROLOL SUCC *XL* 25MG TAB (TopROL *XL*) PO SCH (16:46)
[2018-12-26 18:00] VITALS: BP 101/63
[2018-12-26] MEDS: MOM 30ML SUSPENSION UDC PO PRN (19:07)
[2018-12-26] MEDS: hydrOXYzine 50 MG TAB PO SCH (20:29)
[2018-12-26] MEDS: VITAMIN D 1,000 INTERNATIONAL UNITS TABLET PO SCH (20:29)
[2018-12-26] MEDS: traZODone 50 MG TAB PO PRN (21:02)
[2018-12-26] MEDS: ACETAMINOPHEN TAB 650MG DOSE (2X325MG) PO PRN (21:03)
[2018-12-27 06:00] VITALS: BP 105/78
[2018-12-27] MEDS: ADVAIR HFA 115/21MCG INHALER INH SCH ×2 (08:28→20:33)
[2018-12-27] MEDS: busPIRone 5 MG TAB PO SCH ×3 (08:30→20:37)
[2018-12-27] MEDS: OMEPRAZOLE 20 MG CAP PO SCH (08:30)
[2018-12-27] MEDS: VENLAFAXINE **XR** 75MG CAPSULE PO SCH (08:30)
[2018-12-27] MEDS: FOLIC ACID 1 MG TAB PO SCH (08:30)
[2018-12-27] MEDS: BREXPIPRAZOLE 0.5MG TABLET (REXULTI) PO SCH (08:30)
[2018-12-27] MEDS: DOCUSATE SODIUM 100 MG CAP PO SCH ×2 (08:30→20:37)
--- NOTE | 2018-12-27 10:27 | MHIPNPDOC ---
[facility] Progress Note Progress Note DATE OF SERVICE: 12/27/18 HISTORY: Patient is a 58 -year-old , female, with a history of depression and anxiety who was sent by Kentrell GARCIA for endorsing SI with plan to jump off bridge ("I'm so stressed I might as well jump off the bridge") while being seen by psychiatrist. Pt in the ED was depressed, anxious, pacing, crying profusely,hyperventilating stating "I just get like the some times." She was guarded and reluctant to answer questions. Pt stated in the ED that her biggest stressor was that she was bothered by her upstairs neighbor's children b/c one child "stomped on the floor at all hours" and this made her anxious. She stated in the ED she was suicidal and "just want to go home." VITAL SIGNS: See below. NEW TEST RESULTS: See below. CURRENT MEDICATIONS: See below. MENTAL STATUS EXAMINATION: General Appearance: unkempt, disheveled, appears stated age, hospital scrubs/clothing Build: average Demeanor: average, pleasant Eye Contact: average Activity: more average and less anxious Behavior: cooperative Speech: clear, spontaneous, normal volume, reg/rate,rhythm,volume Mood: less depressed and anxious, more normal mood variability as smiles and laughs appropriately base on interview discussion Mood "better" Affect: less constricted, no longer flat, congruent, less anxious Thought Process: logical/linear, depressed, intact Thought Content (Delusions): none reported, denies SI, HI, AVH Thought Content (Other): none reported, appropriate Thought Content (Aggressive): none reported Perception (Hallucinations): none reported Perception (Other): none reported Cognition (Impairment of): none reported Cognition(Intelligence Est.): average Oriented: Awake, Alert, Oriented times three Insight: fair Judgment: Fair Psychosis: Denies DIAGNOSES: Major depressive d/o w/o psychosis anxiety unspecified ASSESSMENT:Pt seen and states she's feeling better and is less depressed, more motivated with improved energy to do things during the day like attend group and socialize with peers, and less anxious. Her mood appears to be less constricted and anxious. Did smile and laugh today appropriately with interview discussion. States she's tolerating her medication and feels it's beneficial. States she sleeping better at night and is finding her medication helpful. Is eating well. Endorses improving hypersomnia, low energy, depression, poor concentration, lack of motivation. Denies SI/HI, hallucinations, delusions. She is attending groups and finding them helpful. Feels safe here. MANAGEMENT PLAN: continue current plan Rexulti 1mg daily Effexor xr 150mg daily trazodone 50mg qhs prn insomnia TIME SPENT: 30 minutes. Vital Signs Vital Signs Date Time Temp Pulse Resp B/P (MAP) Pulse Ox O2 Delivery O2 Flow Rate FiO2 12/27/18 06:00 98.1 70 18 105/78 (87) 12/23/18 10:08 Room Air 12/21/18 17:44 100 Current Medications Current Medications Acetaminophen (Tylenol Tab) 650 mg Q6HP PRN PO HEADACHE or DISCOMFORT Last administered on 12/26/18 21:03; Start 12/21/18 at 16:15 Al Hydrox/Mg Hydrox/Simethicone (Mylanta) 30 ml Q4HP PRN PO HEARTBURN/INDIGESTION; Start 12/21/18 at 16:15 Albuterol Sulfate (Proventil, Ventolin Hfa) 2 puff Q4HP PRN INH SHORTNESS OF BREATH; Start 12/21/18 at 20:00 Aripiprazole (AbiLIFY) 5 mg DAILY PO Last administered on 12/23/18at 08:07; Start 12/23/18 at 09:00; Stop 12/23/18 at 09:31; Status DC Brexpiprazole (Rexulti) 1 mg DAILY PO Last administered on 12/27/18 08:30; Start 12/24/18 at 09:00 Bupropion HCl (Wellbutrin Xl) 300 mg DAILY PO Last administered on 12/22/18at 08:51; Start 12/22/18 at 09:00; Stop 12/22/18 at 14:23; Status DC Buspirone HCl (Buspar) 15 mg TID PO Last administered on 12/27/18 08:30; Start 12/21/18 at 21:00 Desvenlafaxine Succinate (Pristiq) 25 mg DAILY PO ; Start 12/22/18 at 09:00; Status UNV Desvenlafaxine Succinate (Pristiq) 50 mg QHS PO Last administered on 2/19/19at 22:14; Start 12/21/18 at 21:00; Stop 12/22/18 at 14:23; Status DC Docusate Sodium (Colace) 100 mg BID PO Last administered on 12/27/18 08:30; Start 12/27/18 at 09:00 Folic Acid (Folic Acid) 1 mg DAILY PO Last administered on 12/27/18 08:30; Start 12/22/18 at 09:00 Home Med (Med Rec Complete!) ASDIRECTED XX ; Start 12/21/18 at 17:00; Stop 12/21/18 at 17:00; Status DC Hydroxyzine HCl (Atarax) 50 mg QHS PO Last administered on 12/26/18 20:29; Start 12/21/18 at 21:00 Magnesium Hydroxide (Milk Of Magnesia) 30 ml DAILYPRN PRN PO CONSTIPATION Last administered on 12/26/18 19:07; Start 12/21/18 at 16:15 Metoprolol Succinate (TopROL XL) 25 mg QPM@1700 PO Last administered on 12/26/18 16:46; Start 12/21/18 at 17:00 Miscellaneous (Unresolved Non-Formulary Med Order) SEE LABEL COMMENTS DAILY XX ; Start 12/21/18 at 09:00; Stop 12/22/18 at 14:28; Status DC Omeprazole (PriLOSEC) 40 mg DAILY PO Last administered on 12/27/18 08:30; Start 12/22/18 at 09:00 Salmeterol Xinafoate/ Fluticasone (Advair Hfa 115/ 21) 2 puff RBID INH Last administered on 12/27/18 08:28; Start 12/22/18 at 08:00 Trazodone HCl (Desyrel) 50 mg QHSP PRN PO INSOMNIA Last administered on 12/26/18 21:02; Start 12/21/18 at 16:15 Venlafaxine HCl (Effexor Xr) 150 mg DAILY PO Last administered on 12/27/18 08:30; Start 12/23/18 at 09:00 Vitamin D (Vitamin D) 1,000 units QHS PO Last administered on 12/26/18 20:29; Start 12/21/18 at 21:00 Allergies Coded Allergies: Clarithromycin (Verified Allergy, Unknown, 11/27/14) Erythromycin (Verified Allergy, Unknown, 11/27/14) Nifedipine (Verified Allergy, Unknown, 11/27/14) TAPE (Verified Allergy, Unknown, 11/27/14) PATI ARROYO DO Dec 27, 2018 10:27 am
[2018-12-27] MEDS: METOPROLOL SUCC *XL* 25MG TAB (TopROL *XL*) PO SCH (16:01)
[2018-12-27 18:00] VITALS: BP 129/88
[2018-12-27] MEDS: traZODone 50 MG TAB PO PRN (20:35)
[2018-12-27] MEDS: ACETAMINOPHEN TAB 650MG DOSE (2X325MG) PO PRN (20:36)
[2018-12-27] MEDS: hydrOXYzine 50 MG TAB PO SCH (20:37)
[2018-12-27] MEDS: VITAMIN D 1,000 INTERNATIONAL UNITS TABLET PO SCH (20:37)
[2018-12-28] MEDS: ADVAIR HFA 115/21MCG INHALER INH SCH ×2 (08:25→20:36)
[2018-12-28] MEDS: BREXPIPRAZOLE 0.5MG TABLET (REXULTI) PO SCH (08:27)
[2018-12-28] MEDS: DOCUSATE SODIUM 100 MG CAP PO SCH ×2 (08:28→20:34)
[2018-12-28] MEDS: VENLAFAXINE **XR** 75MG CAPSULE PO SCH (08:28)
[2018-12-28] MEDS: FOLIC ACID 1 MG TAB PO SCH (08:28)
[2018-12-28] MEDS: OMEPRAZOLE 20 MG CAP PO SCH (08:28)
[2018-12-28] MEDS: busPIRone 5 MG TAB PO SCH ×3 (08:28→20:34)
[2018-12-28] MEDS ORDERED: IBUPROFEN 600 MG TAB PO PRN (10:15)
--- NOTE | 2018-12-28 10:15 | MHIPNPDOC ---
[facility] Progress Note Progress Note DATE OF SERVICE: 12/28/18 HISTORY: Patient is a 58 -year-old , female, with a history of depression and anxiety who was sent by Kentrell GARCIA for endorsing SI with plan to jump off bridge ("I'm so stressed I might as well jump off the bridge") while being seen by psychiatrist. Pt in the ED was depressed, anxious, pacing, crying profusely,hyperventilating stating "I just get like the some times." She was guarded and reluctant to answer questions. Pt stated in the ED that her biggest stressor was that she was bothered by her upstairs neighbor's children b/c one child "stomped on the floor at all hours" and this made her anxious. She stated in the ED she was suicidal and "just want to go home." VITAL SIGNS: See below. NEW TEST RESULTS: See below. CURRENT MEDICATIONS: See below. MENTAL STATUS EXAMINATION: General Appearance: unkempt, disheveled, appears stated age, hospital scrubs/clothing Build: average Demeanor: average, pleasant Eye Contact: average Activity: more average and less anxious Behavior: cooperative Speech: clear, spontaneous, normal volume, reg/rate,rhythm,volume Mood: less depressed and anxious, more normal mood variability as smiles and laughs appropriately base on interview discussion Mood "ok" Affect: less constricted, no longer flat, congruent, less anxious Thought Process: logical/linear, depressed, intact Thought Content (Delusions): none reported, denies SI, HI, AVH Thought Content (Other): none reported, appropriate Thought Content (Aggressive): none reported Perception (Hallucinations): none reported Perception (Other): none reported Cognition (Impairment of): none reported Cognition(Intelligence Est.): average Oriented: Awake, Alert, Oriented times three Insight: fair Judgment: Fair Psychosis: Denies DIAGNOSES: Major depressive d/o w/o psychosis anxiety unspecified ASSESSMENT:Pt seen and states she's feeling better and is less depressed, more motivated with improved energy to do things during the day like attend group and socialize with peers, and less anxious. Her mood appears to be less constricted and anxious. Did smile and laugh today appropriately with interview discussion. States she's tolerating her medication and feels it's beneficial. States she sleeping better at night and is finding her medication helpful but is endorsing body pain from the bed and will provide motrin prn pain. Is eating well. Endorses improving hypersomnia, low energy, depression, poor concentration, lack of motivation. Denies SI/HI, hallucinations, delusions. She is attending groups and finding them helpful. Feels safe here. MANAGEMENT PLAN: continue current plan Rexulti 1mg daily Effexor xr 150mg daily trazodone 50mg qhs prn insomnia motrin 600mg q4hr prn pain TIME SPENT: 30 minutes. Vital Signs Vital Signs Date Time Temp Pulse Resp B/P (MAP) Pulse Ox O2 Delivery O2 Flow Rate FiO2 12/27/18 18:00 97.3 81 16 129/88 (102) 12/23/18 10:08 Room Air Current Medications Current Medications Acetaminophen (Tylenol Tab) 650 mg Q6HP PRN PO HEADACHE or DISCOMFORT Last administered on 12/27/18at 20:36; Start 12/21/18 at 16:15 Al Hydrox/Mg Hydrox/Simethicone (Mylanta) 30 ml Q4HP PRN PO HEARTBURN/INDIGESTION; Start 12/21/18 at 16:15 Albuterol Sulfate (Proventil, Ventolin Hfa) 2 puff Q4HP PRN INH SHORTNESS OF BREATH; Start 12/21/18 at 20:00 Aripiprazole (AbiLIFY) 5 mg DAILY PO Last administered on 12/23/18at 08:07; St art 12/23/18 at 09:00; Stop 12/23/18 at 09:31; Status DC Brexpiprazole (Rexulti) 1 mg DAILY PO Last administered on 12/28/18at 08:27; Start 12/24/18 at 09:00 Bupropion HCl (Wellbutrin Xl) 300 mg DAILY PO Last administered on 12/22/18at 08:51; Start 12/22/18 at 09:00; Stop 12/22/18 at 14:23; Status DC Buspirone HCl (Buspar) 15 mg TID PO Last administered on 12/28/18at 08:28; Start 12/21/18 at 21:00 Desvenlafaxine Succinate (Pristiq) 25 mg DAILY PO ; Start 12/22/18 at 09:00; Status UNV Desvenlafaxine Succinate (Pristiq) 50 mg QHS PO Last administered on 12/21/18 22:14; Start 12/21/18 at 21:00; Stop 12/22/18 at 14:23; Status DC Docusate Sodium (Colace) 100 mg BID PO Last administered on 12/28/18 08:28; Start 12/27/18 at 09:00 Folic Acid (Folic Acid) 1 mg DAILY PO Last administered on 12/28/18 08:28; Start 12/22/18 at 09:00 Home Med (Med Rec Complete!) ASDIRECTED XX ; Start 12/21/18 at 17:00; Stop 12/21/18 at 17:00; Status DC Hydroxyzine HCl (Atarax) 50 mg QHS PO Last administered on 12/27/18 20:37; Start 12/21/18 at 21:00 Magnesium Hydroxide (Milk Of Magnesia) 30 ml DAILYPRN PRN PO CONSTIPATION Last administered on 12/26/18 19:07; Start 12/21/18 at 16:15 Metoprolol Succinate (TopROL XL) 25 mg QPM@1700 PO Last administered on 12/27/18 16:01; Start 12/21/18 at 17:00 Miscellaneous (Unresolved Non-Formulary Med Order) SEE LABEL COMMENTS DAILY XX ; Start 12/21/18 at 09:00; Stop 12/22/18 at 14:28; Status DC Omeprazole (PriLOSEC) 40 mg DAILY PO Last administered on 12/28/18 08:28; Start 12/22/18 at 09:00 Salmeterol Xinafoate/ Fluticasone (Advair Hfa 115/ 21) 2 puff RBID INH Last administered on 12/28/18 08:25; Start 12/22/18 at 08:00 Trazodone HCl (Desyrel) 50 mg QHSP PRN PO INSOMNIA Last administered on 12/27/18 20:35; Start 12/21/18 at 16:15 Venlafaxine HCl (Effexor Xr) 150 mg DAILY PO Last administered on 12/28/18 08:28; Start 12/23/18 at 09:00 Vitamin D (Vitamin D) 1,000 units QHS PO Last administered on 2/25/19at 20:37; Start 12/21/18 at 21:00 Allergies Coded Allergies: Clarithromycin (Verified Allergy, Unknown, 11/27/14) Erythromycin (Verified Allergy, Unknown, 11/27/14) Nifedipine (Verified Allergy, Unknown, 11/27/14) TAPE (Verified Allergy, Unknown, 11/27/14) PATI ARROYO DO Dec 28, 2018 10:15 am
[2018-12-28 16:50] VITALS: BP 129/88
[2018-12-28] MEDS: METOPROLOL SUCC *XL* 25MG TAB (TopROL *XL*) PO SCH (16:50)
[2018-12-28 18:00] VITALS: BP 104/63
[2018-12-28] MEDS: VITAMIN D 1,000 INTERNATIONAL UNITS TABLET PO SCH (20:34)
[2018-12-28] MEDS: traZODone 50 MG TAB PO PRN (20:34)
[2018-12-28] MEDS: hydrOXYzine 50 MG TAB PO SCH (20:35)
[2018-12-29 06:00] VITALS: BP 103/61
[2018-12-29] MEDS: DOCUSATE SODIUM 100 MG CAP PO SCH (08:23)
[2018-12-29] MEDS: ADVAIR HFA 115/21MCG INHALER INH SCH (08:24)
[2018-12-29] MEDS: VENLAFAXINE **XR** 75MG CAPSULE PO SCH (08:24)
[2018-12-29] MEDS: OMEPRAZOLE 20 MG CAP PO SCH (08:25)
[2018-12-29] MEDS: BREXPIPRAZOLE 0.5MG TABLET (REXULTI) PO SCH (08:25)
[2018-12-29] MEDS: FOLIC ACID 1 MG TAB PO SCH (08:25)
[2018-12-29] MEDS: busPIRone 5 MG TAB PO SCH (08:25)
[2018-12-29] MEDS ORDERED: VENL75CA47 PO (09:53)
[2018-12-29] MEDS ORDERED: BUSP15TA47 PO (09:53)
[2018-12-29] MEDS ORDERED: TRAZO50TA PO (09:53)
[2018-12-29] MEDS ORDERED: REXU1TAB2 PO (09:53)
--- NOTE | 2018-12-29 09:55 | MHDSPDOC ---
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 Pt in the ED was depressed, anxious, pacing, crying profusely,hyperventilating stating "I just get like the some times." She was guarded and reluctant to answer questions. Pt stated in the ED that her biggest stressor was that she was bothered by her upstairs neighbor's children b/c one child "stomped on the floor at all hours" and this made her anxious. She stated in the ED she was suicidal and "just want to go home." CONSULTANTS INVOLVED: none TREATMENT AND PROGRESS ON THE UNIT : Pt was admitted to [facility], seen for psychiatric assessment and her outpatient pristiq was discontinued and replace with effexor xr (pristiq is another form of effexor) 150mg daily for mood and rexulti 1mg daily for mood. She was continued on her outpatient buspar 15mg tid for anxiety. She was provided vistaril 50mg q6hr prn anxiety and trazodone 50mg qhs prn insomnia. Pt found her medications beneficial and tolerated them well. She attended groups daily during her stay. Her symptoms including energy, motivation, anxiety, mood all improved with treatment. On day of discharge she denied depression, anxiety, insomnia, SI/HI, hallucinations, delusions. She was discharged back to [facility] apt with follow-up at [facility]. She felt safe for discharge. DISCHARGE ASSESSMENT: Pt seen and states she's feeling good and is looking forward to going home today. She states her mood, anxiety, energy, and motiv ation are all improved with her treatment here. She has been attending groups and socializing with peers, finding it beneficial. Her mood appears to be euthymic and bright. States she's tolerating her medication and feels it's beneficial. States she sleeping better at night and is finding her medication helpful. Denies depression, anxiety, insomnia, SI/HI, hallucinations, delu sions. Feels safe to be discharged home. MENTAL STATUS EXAMINATION ON DISCHARGE: PGeneral Appearance: unkempt, disheveled, appears stated age, hospital scrubs/clothing Build: average Demeanor: average, pleasant Eye Contact: average Activity: average, calm Behavior: cooperative Speech: clear, spontaneous, normal volume, reg/rate,rhythm,volume Mood: euthymic, full, bright Mood "good" Affect: euthymic, full, bright Thought Process: logical/linear,intact Thought Content (Delusions): none reported, denies SI, HI, AVH Thought Content (Other): none reported, appropriate Thought Content (Aggressive): none reported Perception (Hallucinations): none reported Perception (Other): none reported Cognition (Impairment of): none reported Cognition(Intelligence Est.): average Oriented: Awake, Alert, Oriented times three Insight: good Judgment: good Psychosis: Denies MEDICATIONS ON DISCHARGE: Rexulti 1mg daily Effexor xr 150mg daily trazodone 50mg qhs prn insomnia buspar 15mg tid for anxiety vistaril 50mg q6hr prn anxiety PLAN/FOLLOWUP ARRANGEMENTS: D/C home with follow-up at [facility]. The amount of time spent in the coordination of care for this patient was approximately 30 minutes. Vital Signs/I&Os Vital Signs Date Time Temp Pulse Resp B/P (MAP) Pulse Ox O2 Delivery O2 Flow Rate FiO2 12/29/18 06:00 99.2 69 14 103/61 (75) 12/23/18 10:08 Room Air Medications Scheduled (Fluticasone Propionate/SA 232-14 Mcg/Act) 1 Inh Inh, 1 PUFF PO BID, (Reported) (Caltrate 600+D Plus [place] 600-800 mg-Unit) 1 Tab Tab, 1 TAB PO QPM, (Reported) TAKES AT 1700 Acetaminophen (Acetaminophen Extra Stren) 500 Mg Tab, 1,000 MG PO Q6H, (R eported) Brexpiprazole (Rexulti) 0.5 Mg Tab, 1 MG PO DAILY for bipolar d/o, #20 Buspirone HCl (Buspirone HCl) 15 Mg Tab, 15 MG PO TID for anxiety, #30 Cholecalciferol (Vitamin D3) 1,000 Unit Chw, 1,000 UNITS PO QHS, (Reported) Folic Acid (Folic Acid) 1 Mg Tab, 1 MG PO DAILY, (Reported) Hydroxyzine Pamoate (Hydroxyzine Pamoate) 50 Mg Cap, 50 MG PO QHS, (Reported) Metoprolol Succinate (Metoprolol Succinate ER) 25 Mg Tab, 25 MG PO QPM, (Reported) TAKES AT 1700 Omeprazole (Omeprazole Dr) 40 Mg Cap, 40 MG PO DAILY, (Reported) Venlafaxine HCl (Venlafaxine HCl ER) 75 Mg Capcr, 150 MG PO DAILY for mood, #20 Scheduled PRN Albuterol Sulfate (Ventolin Hfa) 108 Mcg/Act Aer, 2 PUFF INH Q4H PRN for SHORTNESS OF BREATH, (Reported) Trazodone HCl (Trazodone HCl) 50 Mg Tab, 50 MG PO QHSP PRN for INSOMNIA, #10 Allergies Coded Allergies: Clarithromycin (Verified Allergy, Unknown, 11/27/14) Erythromycin (Verified Allergy, Unknown, 11/27/14) Nifedipine (Verified Allergy, Unknown, 11/27/14) TAPE (Verified Allergy, Unknown, 11/27/14) PATI ARROYO DO Dec 29, 2018 09:53
== END 2018-12-29 11:52 | disposition home or self-care (01) | DRG 881 ==
LOC: M ED 11:27 → M ED INP 16:11 → M PSY 17:58
PROVIDERS: ADMIT Psychiatry & Neurology Psychiatry; ATTEND Psychiatry & Neurology Psychiatry
DX: F32.9 Major depressive disorder, single episode, unspecified (principal); F41.9 Anxiety disorder, unspecified; I12.9 Hypertensive chronic kidney disease with stage 1 through stage 4 chronic kidney disease, or unspecified chronic kidney disease; J45.909 Unspecified asthma, uncomplicated; Z85.3 Personal history of malignant neoplasm of breast; Z90.11 Acquired absence of right breast and nipple; Z79.899 Other long term (current) drug therapy; Z88.1 Allergy status to other antibiotic agents; Z88.8 Allergy status to other drugs, medicaments and biological substances; Z91.048 Other nonmedicinal substance allergy status; E78.5 Hyperlipidemia, unspecified; Z92.21 Personal history of antineoplastic chemotherapy; K21.9 Gastro-esophageal reflux disease without esophagitis; N18.3 Chronic kidney disease, stage 3 (moderate); H91.93 Unspecified hearing loss, bilateral

== ENCOUNTER → 2018-12-31 | Outpatient (REF) | payer MEDICARE ==
[~2018-12-31] MED LIST: ACET-683 PO; BUPR300T34 PO; BUSP15TA47 PO; CALTTAB6 PO; DESV25TA PO; DESV50TA3 PO; FLUT1INH3 PO; FOLI1TAB11 PO; HYDR50CA2 PO; METO1TAB32 PO; OMEP-221 PO; REXU1TAB2 PO; TRAZO50TA PO; VENL75CA47 PO; VENTAER INH; VITA-176 PO
[2018-12-31 12:44] LABS: ALBUMIN 3.6 GM/DL (3.2-5.2); BILIRUBIN,TOTAL 0.5 MG/DL (0.2-1.0); CALCIUM LEVEL 9.1 MG/DL (8.5-10.1); CHOLESTEROL RISK RATIO 3.777 (<5); CREATININE FOR GFR 1.4 MG/DL (0.55-1.30); FREE T4 0.95 NG/DL (0.76-1.46); GLOMERULAR FILTRATION RATE 41.1 (>51); POTASSIUM SERUM 3.7 MEQ/L (3.5-5.1); THYROID STIMULATING HORMONE 3.17 uIU/ML (0.358-3.740); TOTAL PROTEIN 7.2 GM/DL (6.4-8.2)
[2018-12-31 13:01] LABS: TOTAL 25(OH) VITAMIN D 31.6 NG/ML (30.0-100.0)
== END ==
LOC: M SFHCPLAZ 08:48
PROVIDERS: ATTEND Family Medicine
DX: I10 Essential (primary) hypertension (principal); F41.8 Other specified anxiety disorders; E78.5 Hyperlipidemia, unspecified

== ENCOUNTER → 2019-01-07 | Outpatient (REF) | payer MEDICARE ==
[~2019-01-07] MED LIST changes: +REXU1TAB3 PO
[2019-01-07 14:15] LABS: HEMATOCRIT 40.2 % (36.0-47.0); HEMOGLOBIN 13.2 g/dl (12.0-15.5); MEAN CORPUSCULAR HEMOGLOBIN 29.8 pg (27.0-33.0); MEAN CORPUSCULAR HGB CONC 32.8 g/dl (32.0-36.5); MEAN CORPUSCULAR VOLUME 90.7 fl (80.0-96.0); PLATELET COUNT, AUTOMATED 143 10^3/uL (150-450); RED BLOOD COUNT 4.43 10^6/uL (4.00-5.40); WHITE BLOOD COUNT 8.6 10^3/uL (4.0-10.0)
[2019-01-07 14:30] LABS: INR 0.92; PROTHROMBIN TIME 12.4 SECONDS (12.1-14.4)
[2019-01-07 14:31] LABS: PARTIAL THROMBOPLASTIN TIME 25.6 SECONDS (25.4-37.6)
[2019-01-07 14:56] LABS: ALBUMIN 3.7 GM/DL (3.2-5.2); BILIRUBIN,TOTAL 0.3 MG/DL (0.2-1.0); CALCIUM LEVEL 8.7 MG/DL (8.5-10.1); CREATININE FOR GFR 1.12 MG/DL (0.55-1.30); GLOMERULAR FILTRATION RATE 53.2 (>51); POTASSIUM SERUM 3.6 MEQ/L (3.5-5.1); TOTAL PROTEIN 7.3 GM/DL (6.4-8.2)
== END ==
LOC: M SFHCPLAZ 11:47
PROVIDERS: ATTEND Family Medicine
DX: T14.8XXA Other injury of unspecified body region, initial encounter (principal); N17.9 Acute kidney failure, unspecified; R74.0 Nonspecific elevation of levels of transaminase and lactic acid dehydrogenase [LDH]; X58.XXXA Exposure to other specified factors, initial encounter; Y92.9 Unspecified place or not applicable; I10 Essential (primary) hypertension; J45.909 Unspecified asthma, uncomplicated; K59.09 Other constipation; E78.2 Mixed hyperlipidemia
CPT/HCPCS: 36415; 80053; 85027; 85610; 85730; 99495; G0463

== ENCOUNTER → 2019-02-22 | Outpatient (REF) | payer MEDICARE ==
[2019-02-22 12:38] LABS: ALBUMIN 3.7 GM/DL (3.2-5.2); BILIRUBIN,TOTAL 0.4 MG/DL (0.2-1.0); CREATININE FOR GFR 1.39 MG/DL (0.55-1.30); GLOMERULAR FILTRATION RATE 41.5 (>51); POTASSIUM SERUM 4.5 MEQ/L (3.5-5.1); TOTAL PROTEIN 7.3 GM/DL (6.4-8.2)
== END ==
LOC: M SFHCPLAZ 09:54
PROVIDERS: ATTEND Family Medicine
DX: R74.8 Abnormal levels of other serum enzymes (principal)
CPT/HCPCS: 36415; 80053; G0463

== ENCOUNTER → 2019-03-02 | Outpatient (REF) | payer MEDICARE | LOC: M SFHCPLAZ 09:01 | PROVIDERS: ATTEND Family Medicine | DX: R74.8 Abnormal levels of other serum enzymes (principal) ==

== ENCOUNTER → 2019-03-08 | Outpatient (CLI) | payer MEDICARE ==
--- NOTE | 2019-03-08 11:52 | REP ---
RIGHT UPPER QUADRANT ULTRASOUND: Real-time sonographic evaluation of the right upper quadrant performed. Multiple gallstones are seen in the gallbladder. The patient is tender at that location. I do not see significant gallbladder wall thickening. There is no free fluid. There is slight dilatation of the common bile duct at 8 mm. The liver and pancreas demonstrate no gross mass. The pancreas is not optimally seen due to overlying bowel gas. Right kidney demonstrates no hydronephrosis with normal size 10.1 cm in length. IMPRESSION: Multiple gallstones in the gallbladder. No gallbladder wall thickening or free fluid. Slight dilatation of the common bile duct 8 mm.
== END ==
LOC: M WHC 08:25
PROVIDERS: ATTEND Family Medicine
DX: R74.8 Abnormal levels of other serum enzymes (principal); K80.20 Calculus of gallbladder without cholecystitis without obstruction

== ENCOUNTER → 2019-05-23 | Outpatient (REF) | payer MEDICARE ==
[~2019-05-23] MED LIST changes: +TRAZ1TAB10 PO; -TRAZO50TA PO
[2019-05-23 12:28] LABS: CHOLESTEROL RISK RATIO 2.671 (<5)
== END ==
LOC: M SFHCPLAZ 09:46
PROVIDERS: ATTEND Family Medicine
DX: E78.2 Mixed hyperlipidemia (principal)

== ENCOUNTER → 2019-05-30 | Outpatient (REF) | payer MEDICARE, MEDICAID ==
[2019-05-30 15:35] LABS: APPEARANCE, URINE HAZY (CLEAR); BACTERIA, URINE AUTO 1+ (NEGATIVE); BILIRUBIN, URINE AUTO NEGATIVE (NEGATIVE); BLOOD, URINE BLOOD 1+ (NEGATIVE); COLOR, URINE YELLOW (YELLOW); GLUCOSE, URINE (UA) AUTO NEGATIVE (NEGATIVE); KETONE, URINE AUTO NEGATIVE (NEGATIVE); LEUKOCYTE ESTERASE, URINE AUTO 1+ (NEGATIVE); NITRITE, URINE AUTO POSITIVE (NEGATIVE); PROTEIN, URINE AUTO NEGATIVE (NEGATIVE); RBC, URINE AUTO 1 /HPF (0-3); SPECIFIC GRAVITY URINE AUTO 1.011 (1.002-1.035); SQUAMOUS EPITHELIAL CELL UR AU 0 /HPF (0-6); UROBILINOGEN, URINE AUTO 0.2 mg/dL (0.0-2.0); WBC, URINE AUTO 25 /HPF (0-3)
[2019-05-30 15:44] LABS: ALBUMIN 3.6 GM/DL (3.2-5.2); ALT/SGPT 15 U/L (12-78); BILIRUBIN,DIRECT < 0.1 MG/DL (0.0-0.2); BILIRUBIN,TOTAL 0.4 MG/DL (0.2-1.0); BLOOD UREA NITROGEN 7 MG/DL (7-18); CALCIUM LEVEL 9.3 MG/DL (8.5-10.1); CARBON DIOXIDE LEVEL 33 MEQ/L (21-32); CHLORIDE LEVEL 102 MEQ/L (98-107); CREATININE FOR GFR 1.21 MG/DL (0.55-1.30); GLOMERULAR FILTRATION RATE 48.7 (>51); GLUCOSE, FASTING 81 MG/DL (70-100); POTASSIUM SERUM 3.7 MEQ/L (3.5-5.1); SODIUM LEVEL 141 MEQ/L (136-145); TOTAL PROTEIN 7.3 GM/DL (6.4-8.2)
== END ==
LOC: M SFHCPLAZ 12:10
PROVIDERS: ATTEND Family Medicine
DX: K80.20 Calculus of gallbladder without cholecystitis without obstruction (principal); I12.9 Hypertensive chronic kidney disease with stage 1 through stage 4 chronic kidney disease, or unspecified chronic kidney disease; N18.3 Chronic kidney disease, stage 3 (moderate); R82.998 Other abnormal findings in urine
CPT/HCPCS: 80053; 81001; 82248; 87088; 87186; G0402

== ENCOUNTER 2019-08-02 11:49 | Day surgery (SDC) | payer MEDICARE, MEDICAID ==
[~2019-08-02] VITALS: Ht 162.6 cm; Wt 77.6 kg
[~2019-08-02 11:49] MED LIST changes: +BREO1INH3 INH; +LIDOCAINE 1% MDV 20ML VIAL SQ PRN; +LR 1,000 ML IV ONE; +ROSU10TA6 PO
[2019-08-02] MEDS ORDERED: ROCURONIUM BROMIDE 50 MG/5 ML VIAL As Ordered ONE (13:14)
[2019-08-02] MEDS ORDERED: PROPOFOL 200 MG/20 ML VIAL As Ordered ONE (13:14)
[2019-08-02] MEDS ORDERED: MIDAZOLAM INJ 2 MG/2 ML VIAL (J2250) As Ordered ONE (13:14)
[2019-08-02] MEDS ORDERED: LIDOCAINE 2% INJ 100 MG/5 ML SDV (FOR ANES.) As Ordered ONE (13:14)
[2019-08-02] MEDS ORDERED: fentaNYL 250 MCG/5 ML INJECTION (J3010) As Ordered ONE (13:14)
[2019-08-02] MEDS ORDERED: LACRILUBE (AKWA TEARS) OPHTH OINT 3.5 GM As Ordered ONE (14:31)
[2019-08-02] MEDS ORDERED: BUPIVACAINE HCL 0.25% 30 ML VIAL As Ordered ONE (14:51)
[2019-08-02] MEDS ORDERED: dexameTHASONE 4 MG/ML 1ML VIAL (J1100) As Ordered ONE (16:04)
[2019-08-02] MEDS ORDERED: ONDANSETRON 4MG/2ML VIAL (J2405) As Ordered ONE (16:04)
[2019-08-02] MEDS ORDERED: KETOROLAC 60 MG/2 ML VIAL (J1885) As Ordered ONE (16:04)
[2019-08-02] MEDS ORDERED: SUGAMMADEX SODIUM 500 MG/5 ML VIAL (BRIDION) As Ordered ONE (16:04)
[2019-08-02] MEDS ORDERED: ACETAMINOPHEN 1000MG 100ML IV BTL (OFIRMEV) (J0131 PER 10MG) As Ordered ONE (16:05)
[2019-08-02] MEDS ORDERED: NORCO, ANEXSIA 5/325MG TABLET (HYDROcodone/ACETAMINOPHEN) PO PRN ×2 (17:30→17:45)
[2019-08-02] MEDS ORDERED: ONDANSETRON 4MG/2ML VIAL (J2405) IV PRN (17:30)
[2019-08-02] MEDS ORDERED: fentaNYL 100 MCG/2 ML INJECTION (J3010) IV PRN (17:30)
[2019-08-02] MEDS ORDERED: MEPERIDINE INJ 25 MG/ML VIAL (J2175) IV PRN (17:30)
[2019-08-02] MEDS ORDERED: LR 1,000 ML IV SCH (17:30)
[2019-08-02] MEDS ORDERED: ACETAMINOPHEN TAB 650MG DOSE (2X325MG) PO PRN (17:45)
[2019-08-02 19:25] VITALS: BP 117/67
[2019-08-02] MEDS ORDERED: HYDR-4571 PO (20:02)
--- NOTE | 2019-08-03 00:34 | ECGEPIP ---
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
--- NOTE | 2019-08-03 10:23 | RO ---
DATE OF PROCEDURE: 08/02/2019 PREOPERATIVE DIAGNOSIS: Gallstones. POSTOPERATIVE DIAGNOSIS: Gallstones. PROCEDURE PERFORMED: Robotic-assisted laparoscopic cholecystectomy. SURGEON: Dr. Crawford ANESTHESIA: General. INDICATIONS FOR PROCEDURE: Patient is a 58-year-old woman with some abdominal discomfort who was found to have gallstones. She is now for a robotically assisted laparoscopic cholecystectomy. OPERATIVE PROCEDURE: The patient was placed supine on the operating table. She was placed under general endotracheal anesthesia. The patient's abdomen was prepped and draped in a sterile fashion. 0.25% Marcaine was infiltrated at the trocar sites as needed. A short supraumbilical midline incision was made and a Veress needle was inserted. After positive hanging drop test the abdomen was insufflated with carbon dioxide without difficulty. An 8 mm robotic port was placed over 5 mm scope and advanced through the abdominal wall without difficulty. Initial examination showed abundant intra-abdominal mesenteric rather omental fat. The liver was partially seen and the fundus of the gallbladder was seen and was somewhat pale and thickened in appearance but not acutely inflamed. Visualized portions of the small and large bowel appeared normal. A second 8 mm port was placed in the left upper quadrant and two additional 8 mm ports were spaced into the right lower quadrant. The patient was tilted to a reverse Trendelenburg position and rolled somewhat to the left. The [employer] robot patient cart was then brought into position and the robotic arms were docked. A hook cautery was placed in the left upper quadrant port. A grasper and a bipolar forceps were placed in the right lower quadrant ports. I then moved to the control console and proceeded with a robotic portion of the procedure. The fundus of the gallbladder was grasped and on the gallbladder and liver were elevated. Dissection was carried out near the gallbladder neck. There was some fibrofatty tissue in this area that was carefully opened using the hook cautery. The cystic duct was clearly identified and dissected free circumferentially. The cholecystic artery was also clearly identified. Both structures were then doubly clipped with hemoclips and divided. The gallbladder was then dissected free from the gallbladder bed using the hook cautery. The gallbladder was perforated in the course of dissection and bile was spilled into the subhepatic space. The gallbladder was left attached at the fundus for traction on the liver and the right upper quadrant and subhepatic space were then copiously irrigated with a suction family preservation caseworker. The removal of the gallbladder was completed and the gallbladder was placed in an Endopouch. The right upper quadrant was irrigated further until there was no more bile returning. Inspection of the gallbladder bed showed no evidence of bleeding. The robot was undocked and the patient returned to a flat position. I returned to the patient bedside. The string of the Endopouch was grasped through the supraumbilical port site. The abdomen was then deflated and the trocars were all removed. The gallbladder was recovered through the supraumbilical port which required extending the fascial incision slightly. The fascia at the supraumbilical site was then closed with interrupted simple sutures of 2-0 Vicryl. The skin incisions were all closed with buried 5-0 Vicryl and Steri-Strips. Light dressings were applied. The patient tolerated the procedure well without apparent complication. She was awakened in the operating room, extubated and moved to the recovery room in stable condition. JENNIFER
== END 2019-08-02 19:30 | disposition home or self-care (01) ==
LOC: M SDC 11:49
PROVIDERS: ATTEND Surgery
DX: K80.10 Calculus of gallbladder with chronic cholecystitis without obstruction (principal); I12.9 Hypertensive chronic kidney disease with stage 1 through stage 4 chronic kidney disease, or unspecified chronic kidney disease; N18.3 Chronic kidney disease, stage 3 (moderate); R01.1 Cardiac murmur, unspecified; F32.9 Major depressive disorder, single episode, unspecified; F41.9 Anxiety disorder, unspecified; J45.909 Unspecified asthma, uncomplicated; I49.9 Cardiac arrhythmia, unspecified; E78.5 Hyperlipidemia, unspecified; R06.02 Shortness of breath; M12.9 Arthropathy, unspecified; G43.909 Migraine, unspecified, not intractable, without status migrainosus; M81.0 Age-related osteoporosis without current pathological fracture; L30.9 Dermatitis, unspecified; T88.59XD Other complications of anesthesia, subsequent encounter; Z88.1 Allergy status to other antibiotic agents; Z88.8 Allergy status to other drugs, medicaments and biological substances; Z91.048 Other nonmedicinal substance allergy status; Z79.899 Other long term (current) drug therapy; Z80.3 Family history of malignant neoplasm of breast; Z92.3 Personal history of irradiation; Z98.51 Tubal ligation status
CPT/HCPCS: 47562; 88304; 93005; J0131; J1100; J1885; J2250; J2405; J3010

== ENCOUNTER → 2019-09-01 | Outpatient (REF) | payer MEDICARE, MEDICAID ==
[~2019-09-01] MED LIST changes: +HYDR-4571 PO; -LIDOCAINE 1% MDV 20ML VIAL SQ PRN; -LR 1,000 ML IV ONE
[2019-09-01 15:43] LABS: CALCIUM LEVEL 8.8 MG/DL (8.5-10.1); CREATININE FOR GFR 1.21 MG/DL (0.55-1.30); GLOMERULAR FILTRATION RATE 48.7 (>51); POTASSIUM SERUM 3.7 MEQ/L (3.5-5.1)
== END ==
LOC: M SFHCPLAZ 12:58
PROVIDERS: ATTEND Family Medicine
DX: I10 Essential (primary) hypertension (principal); Z23 Encounter for immunization
CPT/HCPCS: 36415; 80048; 90682; G0008; G0463

== ENCOUNTER → 2019-09-03 | Outpatient (CLI) | payer MEDICARE, MEDICAID ==
--- NOTE | 2019-09-05 10:00 | REP ---
MRI lumbar spine: Indication: Lumbar radiculopathy. Comparison: New none. Technique: Multiplanar short and long TR sequences of the lumbar spine were obtained without IV Gadolinium. Findings: Vertebral body alignment is within anatomical limits. Mild disc dessication is present throughout. There is disc space narrowing and L4/L5. No worrisome marrow signal is present. The visualized cord is normal. L1/L2, L2/L3 and L3/L4: There is no focal disc herniation or significant spinal canal / neural foraminal narrowing. L4/L5: There is a small right paracentral disc protrusion superimposed on a diffuse disc bulge with mild right lateral recess narrowing. Mild bilateral neural foraminal narrowing is present. L5/S1: There is no disc herniation or significant spinal canal / neural foraminal narrowing. Impression: Small right paracentral L4/L5 disc herniation and additional degenerative sequelae as described without nerve root impingement. Electronically Signed by Richard Medina DO 09/05/2019 09:51 A
== END ==
LOC: M RAD 12:19
PROVIDERS: ATTEND Family Medicine
DX: M54.5 Low back pain (principal)

== ENCOUNTER → 2019-12-06 | Outpatient (REF) | payer MEDICARE, MEDICAID ==
[~2019-12-06] MED LIST changes: -BUPR300T34 PO; +BUPR300T92 PO
== END ==
LOC: M SFHCWAGY 17:08
PROVIDERS: ATTEND Nurse Practitioner Women's Health
DX: Z12.4 Encounter for screening for malignant neoplasm of cervix (principal)
CPT/HCPCS: 87624; G0123

== ENCOUNTER → 2019-12-06 | Outpatient (CLI) | payer MEDICARE, MEDICAID ==
--- NOTE | 2019-12-06 14:50 | REPMRS ---
Patient History The patient states she had a clinical breast exam in 2019. Family history of breast cancer under age 50 in sister, breast cancer at age 50 or over in maternal aunt, prostate cancer at age 50 or over in father. Reconstruction of the right breast, 2004. Mastectomy of the right breast, 2003. Took tamoxifen for 3 years. Digital Woman Screen Mammo: December 06, 2019 - Exam #: [id number] Bilateral CC and MLO view(s) were taken. Technologist: Zabrina Alexandra, Technologist Prior study comparison: November 04, 2018, bilateral digital woman screen mammo performed at [facility]. September 22, 2017, digital woman screen mammo performed at [facility]. July 22, 2016, digital woman screen mammo performed at [facility]. FINDINGS: There are scattered fibroglandular densities. There has been no change in the appearance of the left breast parenchyma in the interval since the prior examination. No mass, architectural distortion, or microcalcific grouping has developed. No suspicious finding. 3-D tomosynthesis shows no additional findings. Assessment: BI-RADS/ACR category 2 mammogram. Benign Findings. Recommendation Routine screening mammogram of the left breast in 1 year. This mammogram was interpreted with the aid of an FDA-approved computer-aided dectection system. Electronically Signed By: Fei Chu MD 12/06/19 [id number]
== END ==
LOC: M WHC 13:20
PROVIDERS: ATTEND Nurse Practitioner Women's Health
DX: Z12.31 Encounter for screening mammogram for malignant neoplasm of breast (principal); Z85.3 Personal history of malignant neoplasm of breast; Z80.3 Family history of malignant neoplasm of breast; Z80.42 Family history of malignant neoplasm of prostate; Z92.29 Personal history of other drug therapy

== ENCOUNTER → 2019-12-06 | Outpatient (CLI) | payer MEDICARE, MEDICAID ==
--- NOTE | 2019-12-15 15:55 | DEXA ---
AP SPINE L1 - L4 0.960 -1.9 -0.8 LT FEMUR TOTAL 0.827 -1.4 -0.6 LT NECK 0.777 -1.9 -0.7 RT FEMUR TOTAL 0.932 -0.6 0.3 RT NECK 0.824 -1.5 -0.4 TOTAL BODY TOTAL OTHER COMMENTS: There is low bone density of the spine and hips. The density of the spine is increased 10.1% since 02/12/2005. The density of the left hip has increased 3.0% since 02/12/2005. FOLLOW-UP: Recommendation for the next bone density exam: 2 years. JENNIFER
== END ==
LOC: M WHC 13:30
PROVIDERS: ATTEND Family Medicine
DX: M81.0 Age-related osteoporosis without current pathological fracture (principal); Z12.4 Encounter for screening for malignant neoplasm of cervix; Z12.31 Encounter for screening mammogram for malignant neoplasm of breast; Z85.3 Personal history of malignant neoplasm of breast; Z80.3 Family history of malignant neoplasm of breast; Z80.42 Family history of malignant neoplasm of prostate; Z92.29 Personal history of other drug therapy
CPT/HCPCS: 77063; 77067; 77080; 87624; G0101; G0123; G0463

== ENCOUNTER → 2020-01-12 | Outpatient (REF) | payer MEDICARE, MEDICAID ==
[2020-01-12 13:48] LABS: CALCIUM LEVEL 9.3 MG/DL (8.5-10.1); CREATININE FOR GFR 1.23 MG/DL (0.55-1.30); GLOMERULAR FILTRATION RATE 47.6 (>51); POTASSIUM SERUM 3.8 MEQ/L (3.5-5.1)
[2020-01-12 13:56] LABS: TOTAL 25(OH) VITAMIN D 38.2 NG/ML (30.0-100.0)
== END ==
LOC: M SFHCPLAZ 10:45
PROVIDERS: ATTEND Family Medicine
DX: M85.80 Other specified disorders of bone density and structure, unspecified site (principal)

== ENCOUNTER → 2020-05-15 | Outpatient (CLI) | payer MEDICARE, MEDICAID ==
[2020-05-15 13:58] LABS: CALCIUM LEVEL 9.1 MG/DL (8.5-10.1); CHOLESTEROL RISK RATIO 2.342 (<5); CREATININE FOR GFR 1.22 MG/DL (0.55-1.30)
[2020-05-16 10:34] LABS: APPEARANCE, URINE CLEAR (CLEAR); BACTERIA, URINE AUTO 1+ (NEGATIVE); BILIRUBIN, URINE AUTO NEGATIVE (NEGATIVE); BLOOD, URINE BLOOD 1+ (NEGATIVE); COLOR, URINE STRAW (YELLOW); GLUCOSE, URINE (UA) AUTO NEGATIVE (NEGATIVE); KETONE, URINE AUTO NEGATIVE (NEGATIVE); LEUKOCYTE ESTERASE, URINE AUTO 2+ (NEGATIVE); NITRITE, URINE AUTO NEGATIVE (NEGATIVE); PROTEIN, URINE AUTO NEGATIVE (NEGATIVE); RBC, URINE AUTO 1 /HPF (0-3); SPECIFIC GRAVITY URINE AUTO 1.002 (1.002-1.035); SQUAMOUS EPITHELIAL CELL UR AU 0 /HPF (0-6); UROBILINOGEN, URINE AUTO 0.2 mg/dL (0.0-2.0); WBC, URINE AUTO 7 /HPF (0-3)
== END ==
LOC: M PLALAB 11:19
PROVIDERS: ATTEND Family Medicine
DX: I10 Essential (primary) hypertension (principal); E78.2 Mixed hyperlipidemia; N39.46 Mixed incontinence

== ENCOUNTER → 2020-11-27 | Outpatient (REF) | payer MEDICARE, MEDICAID ==
[2020-11-27 11:26] LABS: CALCIUM LEVEL 9.6 MG/DL (8.5-10.1); CREATININE FOR GFR 1.23 MG/DL (0.55-1.30); GLOMERULAR FILTRATION RATE 47.6 (>51); POTASSIUM SERUM 3.7 MEQ/L (3.5-5.1)
== END ==
LOC: M SFHCPLAZ 08:10
PROVIDERS: ATTEND Family Medicine
DX: I12.9 Hypertensive chronic kidney disease with stage 1 through stage 4 chronic kidney disease, or unspecified chronic kidney disease (principal); N18.30 Chronic kidney disease, stage 3 unspecified
CPT/HCPCS: 36415; 80048; G0463

== ENCOUNTER → 2020-12-12 | Outpatient (CLI) | payer MEDICARE, MEDICAID ==
--- NOTE | 2020-12-12 16:06 | REPMRS ---
Patient History The patient states she has not had a clinical breast exam in over a year. Family history of breast cancer under age 50 in sister, breast cancer at age 50 or over in maternal aunt, prostate cancer at age 50 or over in father. Reconstruction of the right breast, 2004. Mastectomy of the right breast, 2003. Took tamoxifen for 3 years. Digital Woman Screen Mammo: December 12, 2020 - Exam #: [id number] Bilateral CC and MLO view(s) were taken. Technologist: Zabrina Alexandra, Technologist Prior study comparison: December 06, 2019, bilateral digital woman screen mammo performed at [facility]. November 04, 2018, bilateral digital woman screen mammo performed at [facility]. September 22, 2017, digital woman screen mammo performed at [facility]. FINDINGS: There are scattered fibroglandular densities. There has been no change in the appearance of the left breast parenchyma in the interval since the prior examination. No mass, architectural distortion, or microcalcific grouping has developed. No suspicious finding. 3-D tomosynthesis shows no additional findings. Assessment: BI-RADS/ACR category 2 mammogram. Benign Findings. Recommendation Routine screening mammogram of the left breast in 1 year. This mammogram was interpreted with the aid of an FDA-approved computer-aided dectection system. Electronically Signed By: Fei Chu MD 12/12/20 [id number]
== END ==
LOC: M WHC 11:22
PROVIDERS: ATTEND Nurse Practitioner Women's Health
DX: Z12.31 Encounter for screening mammogram for malignant neoplasm of breast (principal)

== ENCOUNTER → 2021-07-03 | Outpatient (CLI) | payer MEDICARE, MEDICAID ==
[2021-07-03 12:31] LABS: ALBUMIN 3.5 GM/DL (3.2-5.2); BILIRUBIN,TOTAL 0.7 MG/DL (0.2-1.0); CALCIUM LEVEL 9.3 MG/DL (8.8-10.2); CHOLESTEROL RISK RATIO 2.402 (<5); CREATININE FOR GFR 1.25 MG/DL (0.55-1.30); GLOMERULAR FILTRATION RATE 46.5 (>45); POTASSIUM SERUM 3.4 MEQ/L (3.5-5.1); TOTAL 25(OH) VITAMIN D 41.6 NG/ML (30.0-100.0); TOTAL PROTEIN 6.9 GM/DL (6.4-8.2)
== END ==
LOC: M PLALAB 10:02
PROVIDERS: ATTEND Family Medicine
DX: E55.9 Vitamin D deficiency, unspecified (principal); I10 Essential (primary) hypertension; E78.2 Mixed hyperlipidemia

== ENCOUNTER → 2021-07-30 | Outpatient (CLI) | payer MEDICARE, MEDICAID ==
[2021-07-30 14:15] LABS: CALCIUM LEVEL 9.6 MG/DL (8.8-10.2); CREATININE FOR GFR 1.23 MG/DL (0.55-1.30); GLOMERULAR FILTRATION RATE 47.4 (>45); POTASSIUM SERUM 4.3 MEQ/L (3.5-5.1)
== END ==
LOC: M PLALAB 11:26
PROVIDERS: ATTEND Family Medicine
DX: N18.30 Chronic kidney disease, stage 3 unspecified (principal)

== ENCOUNTER → 2022-01-06 | Outpatient (CLI) | payer MEDICARE, MEDICAID ==
[~2022-01-06] MED LIST changes: -OMEP-221 PO; +OMEP40CA5 PO
[2022-01-06 13:49] LABS: BLOOD UREA NITROGEN 21 MG/DL (7-18); CALCIUM LEVEL 9.6 MG/DL (8.8-10.2); CARBON DIOXIDE LEVEL 30 MEQ/L (21-32); CHLORIDE LEVEL 104 MEQ/L (98-107); CREATININE FOR GFR 0.94 MG/DL (0.55-1.30); GLOMERULAR FILTRATION RATE > 60.0 (>45); GLUCOSE, FASTING 84 MG/DL (70-100); POTASSIUM SERUM 4.1 MEQ/L (3.5-5.1); SODIUM LEVEL 139 MEQ/L (136-145)
== END ==
LOC: M PLALAB 11:08
PROVIDERS: ATTEND Family Medicine
DX: I10 Essential (primary) hypertension (principal)

== ENCOUNTER → 2022-07-15 | Outpatient (CLI) | payer MEDICARE, MEDICAID ==
[~2022-07-15] MED LIST changes: +ARIP1TAB4; +LEXA1TAB; +LISI5TAB11
[2022-07-15 13:44] LABS: BASO # 0.1 10^3/uL (0.0-0.2); BASO % 0.6 % (0.0-1.0); EOS # 0.2 10^3/uL (0.0-0.5); HEMATOCRIT 38.2 % (36.0-47.0); HEMOGLOBIN 12.2 g/dl (12.0-15.5); LYMPH # 2.6 10^3/uL (1.5-5.0); LYMPH % 21.3 % (24.0-44.0); MEAN CORPUSCULAR HEMOGLOBIN 29.5 pg (27.0-33.0); MEAN CORPUSCULAR HGB CONC 31.9 g/dl (32.0-36.5); MEAN CORPUSCULAR VOLUME 92.5 fl (80.0-96.0); MONO % 7.9 % (2.0-8.0); NEUTROPHILS # 8.1 10^3/uL (1.5-8.5); NEUTROPHILS % 67.9 % (36.0-66.0); PLATELET COUNT, AUTOMATED 305 10^3/uL (150-450); RED BLOOD COUNT 4.13 10^6/uL (4.00-5.40)
[2022-07-15 14:34] LABS: ALBUMIN 3.4 GM/DL (3.2-5.2); BILIRUBIN,TOTAL 0.4 MG/DL (0.2-1.0); CALCIUM LEVEL 9.1 MG/DL (8.8-10.2); CHOLESTEROL RISK RATIO 2.706 (<5); CREATININE FOR GFR 1.07 MG/DL (0.55-1.30); GLOMERULAR FILTRATION RATE 55.5 (>45); POTASSIUM SERUM 3.6 MEQ/L (3.5-5.1); TOTAL PROTEIN 6.6 GM/DL (6.4-8.2)
== END ==
LOC: M PLALAB 10:44
PROVIDERS: ATTEND Physician Assistant
DX: E78.2 Mixed hyperlipidemia (principal)

== ENCOUNTER → 2022-07-22 | Outpatient (REF) | payer MEDICARE, MEDICAID ==
[2022-07-22 13:43] LABS: BASO % 0.3 % (0.0-1.0); EOS # 0.3 10^3/uL (0.0-0.5); EOS % 3.5 % (0.0-3.0); HEMATOCRIT 39.1 % (36.0-47.0); HEMOGLOBIN 12.2 g/dl (12.0-15.5); LYMPH # 2.3 10^3/uL (1.5-5.0); LYMPH % 26.7 % (24.0-44.0); MEAN CORPUSCULAR HGB CONC 31.2 g/dl (32.0-36.5); MEAN CORPUSCULAR VOLUME 93.1 fl (80.0-96.0); MONO # 0.7 10^3/uL (0.0-0.8); MONO % 8.5 % (2.0-8.0); NEUTROPHILS # 5.3 10^3/uL (1.5-8.5); NEUTROPHILS % 60.5 % (36.0-66.0); PLATELET COUNT, AUTOMATED 260 10^3/uL (150-450); WHITE BLOOD COUNT 8.8 10^3/uL (4.0-10.0)
== END ==
LOC: M PLALAB 13:12
PROVIDERS: ATTEND Physician Assistant
DX: D72.829 Elevated white blood cell count, unspecified (principal)

== ENCOUNTER → 2022-07-23 | Outpatient (CLI) | payer MEDICARE, MEDICAID | LOC: M LABSMTC 10:54 | PROVIDERS: ATTEND Anesthesiology | DX: Z01.812 Encounter for preprocedural laboratory examination (principal); Z11.52 Encounter for screening for COVID-19 ==

== ENCOUNTER → 2022-08-01 | Outpatient (CLI) | payer MEDICARE, MEDICAID | LOC: M WHC 09:03 | PROVIDERS: ATTEND Nurse Practitioner Family | DX: Z12.31 Encounter for screening mammogram for malignant neoplasm of breast (principal) ==

== ENCOUNTER → 2022-08-01 | Outpatient (REF) | payer MEDICARE, MEDICAID | LOC: M PLALAB 10:55 | PROVIDERS: ATTEND Nurse Practitioner Family | DX: Z12.4 Encounter for screening for malignant neoplasm of cervix (principal) ==

== ENCOUNTER → 2022-08-20 | Outpatient (CLI) | payer MEDICARE, MEDICAID ==
[~2022-08-20] MED LIST changes: -ARIP1TAB4; +ARIP1TAB4 PO; -LEXA1TAB; +LEXA1TAB PO; -LISI5TAB11; +LISI5TAB11 PO
== END ==
LOC: M LABSMTC 11:27
PROVIDERS: ATTEND Anesthesiology
DX: Z01.818 Encounter for other preprocedural examination (principal); Z11.52 Encounter for screening for COVID-19

== ENCOUNTER 2022-08-25 10:06 | Day surgery (SDC) | payer MEDICARE, MEDICAID ==
[~2022-08-25] VITALS: Ht 162.6 cm; Wt 75.7 kg
[~2022-08-25 10:06] MED LIST changes: +LIDOCAINE 1% 1ML PF SYRINGE (OR EYE CASES) As Ordered ONE; +LR 1,000 ML IV SCH
[2022-08-25] MEDS: TETRACAINE 0.5% OPHTH SOLN 4ML OD SCH ×2 (10:56→10:57)
[2022-08-25] MEDS: FLURBIPROFEN 0.03% OPHTH SOLN 2.5 ML OD SCH ×3 (10:57→11:17)
[2022-08-25] MEDS: PHENYLEPHRINE 2.5% OPHTH SOL 2ML OD SCH ×3 (10:57→11:17)
[2022-08-25] MEDS: CYCLOPENTOLATE 1% OPHTH SOLN 2 ML BTL OD SCH ×3 (10:57→11:17)
[2022-08-25] MEDS ORDERED: MIDAZOLAM INJ 2MG/2ML VIAL (J2250 PER 1MG) As Ordered ONE (11:33)
[2022-08-25] MEDS ORDERED: fentaNYL 100 MCG/2 ML INJECTION As Ordered ONE (11:33)
[2022-08-25 12:59] VITALS: BP 104/54
== END 2022-08-25 13:27 | disposition home or self-care (01) ==
LOC: M SDC 10:06
PROVIDERS: ATTEND Ophthalmology
DX: H25.11 Age-related nuclear cataract, right eye (principal); E78.5 Hyperlipidemia, unspecified; N28.89 Other specified disorders of kidney and ureter; K21.9 Gastro-esophageal reflux disease without esophagitis; Z79.899 Other long term (current) drug therapy; Z88.1 Allergy status to other antibiotic agents; Z88.8 Allergy status to other drugs, medicaments and biological substances
CPT/HCPCS: 66984; 92015; J2250; J3010; V2788

== ENCOUNTER → 2022-09-17 | Outpatient (CLI) | payer MEDICARE, MEDICAID ==
[~2022-09-17] MED LIST changes: -LIDOCAINE 1% 1ML PF SYRINGE (OR EYE CASES) As Ordered ONE; -LR 1,000 ML IV SCH
== END ==
LOC: M LABSMTC 10:08
PROVIDERS: ATTEND Anesthesiology
DX: Z01.812 Encounter for preprocedural laboratory examination (principal); Z11.52 Encounter for screening for COVID-19

== ENCOUNTER 2022-09-22 08:17 | Day surgery (SDC) | payer MEDICARE, MEDICAID ==
[~2022-09-22] VITALS: Ht 162.6 cm; Wt 77.6 kg
[~2022-09-22 08:17] MED LIST changes: +CYCLOPENTOLATE 1% OPHTH SOLN 2 ML BTL OS SCH; +FLURBIPROFEN 0.03% OPHTH SOLN 2.5 ML OS SCH; +LR 1,000 ML IV SCH; +PHENYLEPHRINE 2.5% OPHTH SOL 2ML OS SCH; +TETRACAINE 0.5% OPHTH SOLN 4ML OS SCH
[2022-09-22] MEDS ORDERED: LIDOCAINE 1% 1ML PF SYRINGE (OR EYE CASES) As Ordered ONE (08:22)
[2022-09-22] MEDS ORDERED: MIDAZOLAM INJ 2MG/2ML VIAL (J2250 PER 1MG) As Ordered ONE (09:18)
[2022-09-22 09:57] VITALS: BP 138/70
== END 2022-09-22 10:32 | disposition home or self-care (01) ==
LOC: M SDC 08:17
PROVIDERS: ATTEND Ophthalmology
DX: H25.12 Age-related nuclear cataract, left eye (principal); E78.5 Hyperlipidemia, unspecified; N28.89 Other specified disorders of kidney and ureter; K21.9 Gastro-esophageal reflux disease without esophagitis; R00.8 Other abnormalities of heart beat; R01.1 Cardiac murmur, unspecified; D64.9 Anemia, unspecified; J45.909 Unspecified asthma, uncomplicated; M19.90 Unspecified osteoarthritis, unspecified site; F32.A Depression, unspecified; F41.9 Anxiety disorder, unspecified; Z85.3 Personal history of malignant neoplasm of breast; Z90.11 Acquired absence of right breast and nipple; Z88.1 Allergy status to other antibiotic agents; Z88.8 Allergy status to other drugs, medicaments and biological substances; Z91.048 Other nonmedicinal substance allergy status; Z79.899 Other long term (current) drug therapy; Z92.3 Personal history of irradiation
CPT/HCPCS: 66984; J2250; V2788

== ENCOUNTER → 2022-11-10 | Outpatient (REF) | payer MEDICARE, MEDICAID, OTHER ==
[~2022-11-10] MED LIST changes: -CYCLOPENTOLATE 1% OPHTH SOLN 2 ML BTL OS SCH; -FLURBIPROFEN 0.03% OPHTH SOLN 2.5 ML OS SCH; -LR 1,000 ML IV SCH; -PHENYLEPHRINE 2.5% OPHTH SOL 2ML OS SCH; -TETRACAINE 0.5% OPHTH SOLN 4ML OS SCH
== END ==
LOC: M SFHCDERM 17:26
PROVIDERS: ATTEND Physician Assistant
DX: D22.9 Melanocytic nevi, unspecified (principal)

== ENCOUNTER → 2023-06-23 | Outpatient (CLI) | payer OTHER, MEDICAID | LOC: M PLAIMG 12:24 | PROVIDERS: ATTEND Physician Assistant | DX: J45.909 Unspecified asthma, uncomplicated (principal) ==

== ENCOUNTER → 2023-07-15 | Outpatient (CLI) | payer OTHER, MEDICAID ==
[2023-07-15 16:12] LABS: BASO # 0.1 10^3/uL (0.0-0.2); BASO % 0.6 % (0.0-1.0); EOS # 0.3 10^3/uL (0.0-0.5); EOS % 2.8 % (0.0-3.0); HEMATOCRIT 39.4 % (36.0-47.0); HEMOGLOBIN 12.2 g/dl (12.0-15.5); LYMPH # 2.6 10^3/uL (1.5-5.0); LYMPH % 21.3 % (24.0-44.0); MEAN CORPUSCULAR VOLUME 93.8 fl (80.0-96.0); MONO # 0.8 10^3/uL (0.0-0.8); MONO % 6.9 % (2.0-8.0); NEUTROPHILS # 8.2 10^3/uL (1.5-8.5); PLATELET COUNT, AUTOMATED 290 10^3/uL (150-450); WHITE BLOOD COUNT 12.1 10^3/uL (4.0-10.0)
[2023-07-15 16:21] LABS: HEMOGLOBIN A1c 5.9 % (4.0-6.0)
[2023-07-15 16:42] LABS: ALBUMIN 3.9 G/DL (3.2-5.2); BILIRUBIN,TOTAL 0.4 MG/DL (0.3-1.2); CALCIUM LEVEL 10.2 MG/DL (8.3-10.6); CHOLESTEROL RISK RATIO 2.54 (<5); CREATININE FOR GFR 1.18 MG/DL (0.55-1.30); GLOMERULAR FILTRATION RATE 49.4 (>45); HDL CHOLESTEROL 71.4 MG/DL (>40); NON-HDL-C 110.6 MG/DL; POTASSIUM SERUM 4.2 MMOL/L (3.5-5.1); TOTAL PROTEIN 6.9 G/DL (5.7-8.2)
[2023-07-15 16:43] LABS: THYROID STIMULATING HORMONE 1.158 uIU/ML (0.55-4.78); TOTAL 25(OH) VITAMIN D 53.8 NG/ML (20.0-100.0)
[2023-07-15 16:49] LABS: FREE T4 0.99 NG/DL (0.89-1.76)
== END ==
LOC: M PLALAB 11:59
PROVIDERS: ATTEND Physician Assistant
DX: E78.2 Mixed hyperlipidemia (principal); N18.31 Chronic kidney disease, stage 3a; E55.9 Vitamin D deficiency, unspecified; I12.9 Hypertensive chronic kidney disease with stage 1 through stage 4 chronic kidney disease, or unspecified chronic kidney disease; F41.8 Other specified anxiety disorders; Z79.899 Other long term (current) drug therapy

== ENCOUNTER → 2023-08-06 | Outpatient (CLI) | payer OTHER, MEDICAID | LOC: M WHC 12:50 | PROVIDERS: ATTEND Physician Assistant | DX: Z12.31 Encounter for screening mammogram for malignant neoplasm of breast (principal); R92.8 Other abnormal and inconclusive findings on diagnostic imaging of breast | CPT/HCPCS: 77067; G0279 ==

== ENCOUNTER → 2023-08-06 | Outpatient (CLI) | payer OTHER, MEDICAID ==
[2023-08-06 18:18] LABS: BASO % 0.5 % (0.0-1.0); EOS # 0.2 10^3/uL (0.0-0.5); EOS % 2.4 % (0.0-3.0); HEMATOCRIT 35.2 % (36.0-47.0); HEMOGLOBIN 11.1 g/dl (12.0-15.5); LYMPH # 2.2 10^3/uL (1.5-5.0); LYMPH % 24.9 % (24.0-44.0); MEAN CORPUSCULAR HEMOGLOBIN 29.8 pg (27.0-33.0); MEAN CORPUSCULAR HGB CONC 31.5 g/dl (32.0-36.5); MEAN CORPUSCULAR VOLUME 94.4 fl (80.0-96.0); MONO # 0.9 10^3/uL (0.0-0.8); MONO % 9.9 % (2.0-8.0); NEUTROPHILS # 5.4 10^3/uL (1.5-8.5); PLATELET COUNT, AUTOMATED 284 10^3/uL (150-450); RED BLOOD COUNT 3.73 10^6/uL (4.00-5.40); WHITE BLOOD COUNT 8.7 10^3/uL (4.0-10.0)
[2023-08-06 18:46] LABS: ALBUMIN 3.6 G/DL (3.2-5.2); BILIRUBIN,TOTAL 0.3 MG/DL (0.3-1.2); CALCIUM LEVEL 8.9 MG/DL (8.3-10.6); CREATININE FOR GFR 1.13 MG/DL (0.55-1.30); GLOMERULAR FILTRATION RATE 51.9 (>45); POTASSIUM SERUM 4.1 MMOL/L (3.5-5.1); PTH INTACT 60.5 PG/ML (18.5-88.0); TOTAL PROTEIN 6.3 G/DL (5.7-8.2)
== END ==
LOC: M PLALAB 13:43
PROVIDERS: ATTEND Physician Assistant
DX: D72.829 Elevated white blood cell count, unspecified (principal); Z12.31 Encounter for screening mammogram for malignant neoplasm of breast; R92.8 Other abnormal and inconclusive findings on diagnostic imaging of breast; Z79.899 Other long term (current) drug therapy
CPT/HCPCS: 36415; 77067; 80053; 82784; 82977; 83519; 83970; 84155; 84165; 85025; 86334; G0279

== ENCOUNTER → 2024-01-14 | Outpatient (CLI) | payer OTHER, MEDICAID ==
[2024-01-14 14:31] LABS: BASO # 0.1 10^3/uL (0.0-0.2); BASO % 0.4 % (0.0-1.0); EOS # 0.4 10^3/uL (0.0-0.5); EOS % 2.9 % (0.0-3.0); HEMOGLOBIN 12.7 g/dl (12.0-15.5); LYMPH # 2.3 10^3/uL (1.5-5.0); LYMPH % 18.2 % (24.0-44.0); MEAN CORPUSCULAR HEMOGLOBIN 29.1 pg (27.0-33.0); MEAN CORPUSCULAR HGB CONC 31.8 g/dl (32.0-36.5); MEAN CORPUSCULAR VOLUME 91.7 fl (80.0-96.0); MONO # 0.9 10^3/uL (0.0-0.8); MONO % 7.4 % (2.0-8.0); NEUTROPHILS # 8.7 10^3/uL (1.5-8.5); NEUTROPHILS % 70.5 % (36.0-66.0); PLATELET COUNT, AUTOMATED 274 10^3/uL (150-450); RED BLOOD COUNT 4.36 10^6/uL (4.00-5.40); WHITE BLOOD COUNT 12.4 10^3/uL (4.0-10.0)
[2024-01-14 14:59] LABS: HEMOGLOBIN A1c 5.6 % (4.0-6.0)
[2024-01-14 15:09] LABS: ALBUMIN 3.6 G/DL (3.2-5.2); BILIRUBIN,TOTAL 0.5 MG/DL (0.3-1.2); CALCIUM LEVEL 9.5 MG/DL (8.3-10.6); CHOLESTEROL RISK RATIO 2.5 (<5); CREATININE FOR GFR 1.07 MG/DL (0.55-1.30); FREE T4 0.93 NG/DL (0.89-1.76); GLOMERULAR FILTRATION RATE 55.1 (>45); HDL CHOLESTEROL 71.1 MG/DL (>40); LDL CHOLESTEROL 74.7 MG/DL (<100); NON-HDL-C 106.9 MG/DL; POTASSIUM SERUM 4.3 MMOL/L (3.5-5.1); THYROID STIMULATING HORMONE 0.842 uIU/ML (0.55-4.78); TOTAL PROTEIN 6.8 G/DL (5.7-8.2)
== END ==
LOC: M PLALAB 11:41
PROVIDERS: ATTEND Physician Assistant
DX: E55.9 Vitamin D deficiency, unspecified (principal); I10 Essential (primary) hypertension; F41.1 Generalized anxiety disorder; E53.8 Deficiency of other specified B group vitamins; E78.2 Mixed hyperlipidemia; Z13.1 Encounter for screening for diabetes mellitus; Z79.899 Other long term (current) drug therapy

== ENCOUNTER → 2024-01-25 | Outpatient (CLI) | payer OTHER, MEDICAID | LOC: M WHC 09:38 | PROVIDERS: ATTEND Physician Assistant | DX: M81.0 Age-related osteoporosis without current pathological fracture (principal) ==

== ENCOUNTER 2024-02-09 05:41 | Emergency (ER) | payer OTHER, MEDICAID ==
[~2024-02-09] VITALS: Ht 160 cm; Wt 85.7 kg
[2024-02-09 06:41] LABS: BASO # 0.1 10^3/uL (0.0-0.2); BASO % 0.6 % (0.0-1.0); EOS # 0.5 10^3/uL (0.0-0.5); EOS % 3.3 % (0.0-3.0); HEMATOCRIT 36.6 % (36.0-47.0); HEMOGLOBIN 11.9 g/dl (12.0-15.5); LYMPH # 2.5 10^3/uL (1.5-5.0); LYMPH % 18.1 % (24.0-44.0); MEAN CORPUSCULAR HEMOGLOBIN 29.4 pg (27.0-33.0); MEAN CORPUSCULAR HGB CONC 32.5 g/dl (32.0-36.5); MEAN CORPUSCULAR VOLUME 90.4 fl (80.0-96.0); MONO % 7.1 % (2.0-8.0); NEUTROPHILS # 9.7 10^3/uL (1.5-8.5); NEUTROPHILS % 70.5 % (36.0-66.0); PLATELET COUNT, AUTOMATED 258 10^3/uL (150-450); RED BLOOD COUNT 4.05 10^6/uL (4.00-5.40); WHITE BLOOD COUNT 13.8 10^3/uL (4.0-10.0)
[2024-02-09 07:02] LABS: CK-MB VALUE MASS < 1.0 NG/ML (<3.6)
[2024-02-09 07:04] LABS: BLOOD UREA NITROGEN 9 MG/DL (9-23); CALCIUM LEVEL 8.5 MG/DL (8.3-10.6); CARBON DIOXIDE LEVEL 28 MMOL/L (20-31); CHLORIDE LEVEL 107 MMOL/L (98-107); CREATININE FOR GFR 1.04 MG/DL (0.55-1.30); GLUCOSE, FASTING 94 MG/DL (74-106); POTASSIUM SERUM 3.7 MMOL/L (3.5-5.1); SODIUM LEVEL 142 MMOL/L (136-145)
[2024-02-09 07:05] LABS: CPK CREATINE PHOSPHOKINASE 110 U/L (34-145)
[2024-02-09] MEDS ORDERED: ISOVUE-370 76% 100ML VIAL As Ordered ONE (08:27)
[2024-02-09 08:46] LABS: CK-MB VALUE MASS < 1.0 NG/ML (<3.6)
[2024-02-09 08:48] LABS: CPK CREATINE PHOSPHOKINASE 116 U/L (34-145); MB/CK RELATIVE INDEX 0.86 (< OR =4)
[2024-02-09] MEDS: KETOROLAC 30 MG/ML 1ML VIAL IV ONE (09:20)
[2024-02-09] MEDS ORDERED: LEXA1TAB2 PO (10:43)
[2024-02-09] MEDS ORDERED: ADVA45AE INH (10:43)
[2024-02-09] MEDS ORDERED: OMEP-173 PO (10:43)
[2024-02-09] MEDS ORDERED: D 1010004 PO (10:43)
[2024-02-09] MEDS ORDERED: HOME MED LIST COMPLETE! XX SCH (10:45)
[2024-02-09 11:00] VITALS: BP 111/65; TEMP 97.6; O2SAT 96
== END 2024-02-09 11:16 | disposition home or self-care (01) ==
LOC: M ED 05:41 → EDBD 05:41 → M ED 11:16
DX: R05.3 Chronic cough (principal); I10 Essential (primary) hypertension; E78.5 Hyperlipidemia, unspecified; K21.9 Gastro-esophageal reflux disease without esophagitis; J45.909 Unspecified asthma, uncomplicated; Z88.8 Allergy status to other drugs, medicaments and biological substances; Z88.1 Allergy status to other antibiotic agents; Z79.51 Long term (current) use of inhaled steroids; Z79.899 Other long term (current) drug therapy
CPT/HCPCS: 71045; 71275; 80048; 82550; 82553; 83880; 84484; 85025; 87486; 87581; 87633; 87798; 93005; 93041; 94760; 96374; 99285; J1885; Q9967

== ENCOUNTER → 2024-03-01 | Outpatient (CLI) | payer OTHER, MEDICAID ==
[~2024-03-01] MED LIST changes: +ADVA45AE INH; +D 1010004 PO; +LEXA1TAB2 PO; +OMEP-173 PO
[2024-03-01 11:32] LABS: ALBUMIN 3.2 G/DL (3.2-5.2); ALKALINE PHOSPHATASE 137 U/L (46-116); ALT/SGPT 16 U/L (7.0-40); AST/SGOT 15 U/L (<34); BASO # 0.1 10^3/uL (0.0-0.2); BASO % 0.6 % (0.0-1.0); BILIRUBIN,DIRECT < 0.1 MG/DL (<0.4); BILIRUBIN,TOTAL 0.3 MG/DL (0.3-1.2); EOS # 0.4 10^3/uL (0.0-0.5); EOS % 3.2 % (0.0-3.0); HEMATOCRIT 39.5 % (36.0-47.0); HEMOGLOBIN 12.6 g/dl (12.0-15.5); LYMPH # 2.8 10^3/uL (1.5-5.0); LYMPH % 22.9 % (24.0-44.0); MEAN CORPUSCULAR HEMOGLOBIN 29.6 pg (27.0-33.0); MEAN CORPUSCULAR HGB CONC 31.9 g/dl (32.0-36.5); MEAN CORPUSCULAR VOLUME 92.9 fl (80.0-96.0); MONO # 0.8 10^3/uL (0.0-0.8); MONO % 6.6 % (2.0-8.0); NEUTROPHILS # 8.2 10^3/uL (1.5-8.5); NEUTROPHILS % 66.2 % (36.0-66.0); PLATELET COUNT, AUTOMATED 301 10^3/uL (150-450); RED BLOOD COUNT 4.25 10^6/uL (4.00-5.40); TOTAL PROTEIN 6.5 G/DL (5.7-8.2); WHITE BLOOD COUNT 12.4 10^3/uL (4.0-10.0)
== END ==
LOC: M PLALAB 07:36
PROVIDERS: ATTEND Physician Assistant
DX: D72.829 Elevated white blood cell count, unspecified (principal); R79.89 Other specified abnormal findings of blood chemistry

== ENCOUNTER → 2024-03-22 | Outpatient (CLI) | payer OTHER, MEDICAID ==
[~2024-03-22] MED LIST changes: +BARIUM SULFATE 700 MG TABLET (E-Z-DISK) As Ordered ONE; +BUPR-597 PO; -BUPR300T92 PO; +E-Z-PAQUE 96% w/w SUSP 176GM BTL As Ordered ONE; -ROSU10TA6 PO; +ROSU10TA61 PO; +VARIBAR NECTAR 40% w/v 240ML SUSP BTL As Ordered ONE; +VARIBAR PUDDING 40% w/v 230ML TUBE As Ordered ONE
== END ==
LOC: M RAD 10:47
PROVIDERS: ATTEND Physician Assistant
DX: R13.10 Dysphagia, unspecified (principal)

== ENCOUNTER → 2024-03-23 | Outpatient (CLI) | payer OTHER, MEDICAID ==
[~2024-03-23] MED LIST changes: -BARIUM SULFATE 700 MG TABLET (E-Z-DISK) As Ordered ONE; -E-Z-PAQUE 96% w/w SUSP 176GM BTL As Ordered ONE; -VARIBAR NECTAR 40% w/v 240ML SUSP BTL As Ordered ONE; -VARIBAR PUDDING 40% w/v 230ML TUBE As Ordered ONE
[2024-03-23 13:46] LABS: BASO # 0.1 10^3/uL (0.0-0.2); BASO % 0.6 % (0.0-1.0); EOS # 0.4 10^3/uL (0.0-0.5); EOS % 3.5 % (0.0-3.0); HEMATOCRIT 38.4 % (36.0-47.0); HEMOGLOBIN 11.9 g/dl (12.0-15.5); LYMPH # 1.9 10^3/uL (1.5-5.0); LYMPH % 15.2 % (24.0-44.0); MEAN CORPUSCULAR HEMOGLOBIN 28.5 pg (27.0-33.0); MEAN CORPUSCULAR VOLUME 92.1 fl (80.0-96.0); MONO # 1.1 10^3/uL (0.0-0.8); MONO % 8.3 % (2.0-8.0); NEUTROPHILS # 9.1 10^3/uL (1.5-8.5); NEUTROPHILS % 71.8 % (36.0-66.0); PLATELET COUNT, AUTOMATED 318 10^3/uL (150-450); RED BLOOD COUNT 4.17 10^6/uL (4.00-5.40); WHITE BLOOD COUNT 12.7 10^3/uL (4.0-10.0)
[2024-03-26 18:07] LABS: D001-IgE D pteronyssinus <0.10 kU/L (Class 0); E001-IgE Cat Epith/Dander < 0.10 kU/L (Class 0); E005-IgE Dog Dander < 0.10 kU/L (Class 0); G002-IgE Bermuda Grass < 0.10 kU/L (Class 0); M001-IgE Penicillium chrysogen < 0.10 kU/L (Class 0); M002 IgE Cladosporium herbaru < 0.10 kU/L (Class 0); M003 IgE Aspergillus fumigatu < 0.10 kU/L (Class 0); M006-IgE Alternaria alternata < 0.10 kU/L (Class 0); T001-IgE Maple/Box Elder < 0.10 kU/L (Class 0); T003-IgE Common Silver Birch < 0.10 kU/L (Class 0); T006-IgE Cedar, Mountain < 0.10 kU/L (Class 0); T007-IgE Oak, White < 0.10 kU/L (Class 0); T008-IgE Elm, American < 0.10 kU/L (Class 0); T015-IgE Ash, White < 0.10 kU/L (Class 0); T070-IgE White Mulberry < 0.10 kU/L (Class 0); W001-IgE Ragweed, Short < 0.10 kU/L (Class 0); W018-IgE Sheep Sorrel < 0.10 kU/L (Class 0)
== END ==
LOC: M PLALAB 09:33
PROVIDERS: ATTEND Internal Medicine Pulmonary Disease
DX: R91.8 Other nonspecific abnormal finding of lung field (principal); R05.9 Cough, unspecified; J45.998 Other asthma

== ENCOUNTER → 2024-04-14 | Outpatient (CLI) | payer OTHER, MEDICAID | LOC: M PLAIMG 09:27 | PROVIDERS: ATTEND Internal Medicine Pulmonary Disease | DX: R06.00 Dyspnea, unspecified (principal) ==

== ENCOUNTER → 2024-07-14 | Outpatient (CLI) | payer OTHER, MEDICAID ==
[2024-07-14 15:26] LABS: BASO # 0.1 10^3/uL (0.0-0.2); BASO % 0.6 % (0.0-1.0); EOS # 0.4 10^3/uL (0.0-0.5); EOS % 3.3 % (0.0-3.0); HEMATOCRIT 38.1 % (36.0-47.0); HEMOGLOBIN 12.2 g/dl (12.0-15.5); LYMPH # 2.1 10^3/uL (1.5-5.0); LYMPH % 18.6 % (24.0-44.0); MEAN CORPUSCULAR HEMOGLOBIN 28.6 pg (27.0-33.0); MEAN CORPUSCULAR VOLUME 89.4 fl (80.0-96.0); MONO # 0.8 10^3/uL (0.0-0.8); MONO % 7.2 % (2.0-8.0); NEUTROPHILS # 7.9 10^3/uL (1.5-8.5); NEUTROPHILS % 69.9 % (36.0-66.0); PLATELET COUNT, AUTOMATED 314 10^3/uL (150-450); RED BLOOD COUNT 4.26 10^6/uL (4.00-5.40); WHITE BLOOD COUNT 11.3 10^3/uL (4.0-10.0)
[2024-07-14 15:55] LABS: ALBUMIN 3.7 G/DL (3.2-5.2); BILIRUBIN,TOTAL 0.5 MG/DL (0.3-1.2); CALCIUM LEVEL 9.1 MG/DL (8.3-10.6); CREATININE FOR GFR 1.26 MG/DL (0.55-1.30); GLOMERULAR FILTRATION RATE 45.7 (>45); POTASSIUM SERUM 4.1 MMOL/L (3.5-5.1); TOTAL PROTEIN 6.8 G/DL (5.7-8.2)
[2024-07-14 15:56] LABS: PERCENT SATURATION 13.3 % (13.2-45.0)
[2024-07-14 15:58] LABS: FERRITIN 13.6 NG/ML (7.3-270.7)
== END ==
LOC: M PLALAB 11:45
PROVIDERS: ATTEND Physician Assistant
DX: I10 Essential (primary) hypertension (principal); N18.31 Chronic kidney disease, stage 3a; Z13.0 Encounter for screening for diseases of the blood and blood-forming organs and certain disorders involving the immune mechanism; Z74.8 Other problems related to care provider dependency

== ENCOUNTER → 2024-08-08 | Outpatient (CLI) | payer OTHER, MEDICAID | LOC: M WHC 08:32 | PROVIDERS: ATTEND Internal Medicine Hematology | DX: Z12.31 Encounter for screening mammogram for malignant neoplasm of breast (principal); N64.9 Disorder of breast, unspecified | CPT/HCPCS: 77067; G0279 ==

== ENCOUNTER 2024-10-07 06:48 | Day surgery (SDC) | payer OTHER, MEDICAID ==
[~2024-10-07] VITALS: Ht 160 cm; Wt 88.3 kg
[~2024-10-07 06:48] MED LIST changes: +IRON65TA2 PO; +PANT40TA29 PO; +SPIR12.9 INH
[2024-10-07] MEDS ORDERED: FAMO20TA PO (07:09)
[2024-10-07 09:30] VITALS: BP 136/81; O2SAT 97
== END 2024-10-07 09:40 | disposition home or self-care (01) ==
LOC: M OPP 06:48
PROVIDERS: ATTEND Surgery
DX: K21.9 Gastro-esophageal reflux disease without esophagitis (principal); I10 Essential (primary) hypertension; E78.00 Pure hypercholesterolemia, unspecified; M81.0 Age-related osteoporosis without current pathological fracture; Z79.899 Other long term (current) drug therapy; Z79.51 Long term (current) use of inhaled steroids; Z88.1 Allergy status to other antibiotic agents; Z88.8 Allergy status to other drugs, medicaments and biological substances; Z91.048 Other nonmedicinal substance allergy status

== ENCOUNTER 2024-11-29 07:33 | Day surgery (SDC) | payer MEDICARE, MEDICAID ==
[~2024-11-29] VITALS: Ht 160 cm; Wt 90.7 kg
[~2024-11-29 07:33] MED LIST changes: +FAMO20TA PO
[2024-11-29] MEDS ORDERED: dexmedeTOMIDine (4MCG/ML)200MCG/50ML BTL (PRECEDEX) As Ordered ONE (08:30)
[2024-11-29] MEDS ORDERED: GLYCOPYRROLATE INJ 0.2 MG/ML 2 ML VIAL As Ordered ONE (08:38)
[2024-11-29] MEDS ORDERED: propofoL 200 MG/20 ML VIAL As Ordered ONE (08:41)
[2024-11-29] MEDS ORDERED: fentaNYL 100 MCG/2 ML INJECTION As Ordered ONE (08:41)
[2024-11-29] MEDS ORDERED: LIDOCAINE 2% 100MG/5ML SDV (FOR ANES.) As Ordered ONE (08:41)
[2024-11-29] MEDS: ALBUTEROL SULFATE 2.5MG/0.5ML INH NEB SOLN NEB ONE (08:42)
[2024-11-29] MEDS: NS (Normal Saline) 0.9% 1,000 ML IV SCH (08:42)
[2024-11-29] MEDS ORDERED: CETACAINE SPRAY 5GM As Ordered ONE (09:08)
[2024-11-29 10:16] VITALS: BP 127/74; TEMP 98; O2SAT 96
== END 2024-11-29 10:18 | disposition home or self-care (01) ==
LOC: M SDC 07:33
PROVIDERS: ATTEND Surgery
DX: K31.89 Other diseases of stomach and duodenum (principal); R13.10 Dysphagia, unspecified; R12 Heartburn; Z88.1 Allergy status to other antibiotic agents; Z88.2 Allergy status to sulfonamides; Z91.048 Other nonmedicinal substance allergy status; Z79.899 Other long term (current) drug therapy
CPT/HCPCS: 43239; 88305; J1596; J3010

== ENCOUNTER → 2025-02-01 | Outpatient (CLI) | payer MEDICARE, MEDICAID ==
[2025-02-01 10:54] LABS: BASO # 0.1 10^3/uL (0.0-0.2); BASO % 0.5 % (0.0-1.0); EOS # 0.4 10^3/uL (0.0-0.5); EOS % 3.8 % (0.0-3.0); HEMATOCRIT 39.6 % (36.0-47.0); HEMOGLOBIN 12.7 g/dl (12.0-15.5); LYMPH # 2.6 10^3/uL (1.5-5.0); LYMPH % 22.6 % (24.0-44.0); MEAN CORPUSCULAR HEMOGLOBIN 28.9 pg (27.0-33.0); MEAN CORPUSCULAR HGB CONC 32.1 g/dl (32.0-36.5); MEAN CORPUSCULAR VOLUME 90.2 fl (80.0-96.0); MONO # 0.8 10^3/uL (0.0-0.8); NEUTROPHILS # 7.5 10^3/uL (1.5-8.5); NEUTROPHILS % 65.8 % (36.0-66.0); PLATELET COUNT, AUTOMATED 311 10^3/uL (150-450); RED BLOOD COUNT 4.39 10^6/uL (4.00-5.40); WHITE BLOOD COUNT 11.4 10^3/uL (4.0-10.0)
[2025-02-01 11:13] LABS: ALBUMIN 3.6 G/DL (3.2-5.2); BILIRUBIN,TOTAL 0.5 MG/DL (0.3-1.2); CALCIUM LEVEL 9.3 MG/DL (8.3-10.6); CHOLESTEROL RISK RATIO 2.43 (<5); CREATININE FOR GFR 1.33 MG/DL (0.55-1.30); GLOMERULAR FILTRATION RATE 42.8 (>45); HDL CHOLESTEROL 60.8 MG/DL (>40); LDL CHOLESTEROL 52.4 MG/DL (<100); NON-HDL-C 87.2 MG/DL; POTASSIUM SERUM 4.1 MMOL/L (3.5-5.1); TOTAL PROTEIN 6.8 G/DL (5.7-8.2)
[2025-02-01 11:16] LABS: FREE T4 1.11 NG/DL (0.89-1.76)
[2025-02-01 11:17] LABS: FERRITIN 20.4 NG/ML (7.3-270.7); THYROID STIMULATING HORMONE 2.056 uIU/ML (0.55-4.78)
[2025-02-01 11:18] LABS: TOTAL 25(OH) VITAMIN D 58.4 NG/ML (20.0-100.0)
== END ==
LOC: M PLALAB 08:17
PROVIDERS: ATTEND Nurse Practitioner Family
DX: Z13.1 Encounter for screening for diabetes mellitus (principal); N18.31 Chronic kidney disease, stage 3a; D72.829 Elevated white blood cell count, unspecified; E04.9 Nontoxic goiter, unspecified; E78.2 Mixed hyperlipidemia; D50.9 Iron deficiency anemia, unspecified

== ENCOUNTER → 2025-02-15 | Outpatient (CLI) | payer MEDICARE, MEDICAID | LOC: M RAD 13:44 | PROVIDERS: ATTEND Nurse Practitioner Family | DX: E04.9 Nontoxic goiter, unspecified (principal) ==